=== PATIENT | female | born 1955 | race Hispanic/Latino ===

== ENCOUNTER → 2017-11-23 | Outpatient (RCR) | payer MEDICARE, OTHER | LOC: PT 11-02 13:43 | PROVIDERS: ATTEND Specialist | DX: Z96.641 Presence of right artificial hip joint (principal); M99.03 Segmental and somatic dysfunction of lumbar region; M06.862 Other specified rheumatoid arthritis, left knee; E66.01 Morbid (severe) obesity due to excess calories; R26.2 Difficulty in walking, not elsewhere classified; M62.81 Muscle weakness (generalized) | CPT/HCPCS: 97010 ×2; 97110 ×6; 97163; G8978; G8979 ==

== ENCOUNTER 2017-12-06 10:42 | Outpatient (RCR) | payer MEDICARE, OTHER | END 2017-12-24 | LOC: PT 10:42 | PROVIDERS: ATTEND Specialist | DX: Z96.641 Presence of right artificial hip joint (principal); M99.03 Segmental and somatic dysfunction of lumbar region; M06.862 Other specified rheumatoid arthritis, left knee; E66.01 Morbid (severe) obesity due to excess calories; R26.2 Difficulty in walking, not elsewhere classified; M62.81 Muscle weakness (generalized) | CPT/HCPCS: 97010; 97110 ×6; G8978; G8979 ==

== ENCOUNTER 2018-01-17 06:02 | Observation (INO) | payer MEDICARE ==
[2018-01-14 09:49] LABS: BASOPHILS # (AUTO) 0.1 (0.0-0.1); BASOPHILS % 0.6 % (0.0-1.0); EOSINOPHILS # (AUTO) 0.1 (0.0-0.4); EOSINOPHILS % 1.2 % (0.0-6.0); HEMATOCRIT 45.1 % (34.2-44.1); HEMOGLOBIN 14.8 g/dL (12.0-16.0); LYMPHOCYTES # (AUTO) 3.1 (1.0-3.2); LYMPHOCYTES % 31.3 % (18.0-39.1); MEAN CORPUSCULAR HGB CONC 32.8 g/dL (31-35); MEAN CORPUSCULAR VOLUME 94.5 fL (81-99); MONOCYTES % 10.6 % (4.4-11.3); NEUTROPHILS # (AUTO) 5.5 (2.1-6.9); NEUTROPHILS % 56.1 % (38.7-80.0); PLATELET COUNT 229 x10e3/uL (140-360); RED BLOOD COUNT 4.77 x10e6/uL (3.6-5.1); RED CELL DISTRIBUTION WIDTH 13.5 % (11.7-14.4)
[2018-01-14 10:14] LABS: ANION GAP 15.4 mmol/L (8-16); BLOOD UREA NITROGEN 13 mg/dL (7-26); BUN/CREATININE RATIO 20 (6-25); CALCIUM 9.4 mg/dL (8.4-10.2); CARBON DIOXIDE 29 mmol/L (22-29); CHLORIDE 101 mmol/L (98-107); CREATININE, SERUM 0.64 mg/dL (0.57-1.11); EST GLOMERULAR FILTRATION RATE > 60 ML/MIN (60-); GLUCOSE 93 mg/dL (74-118); POTASSIUM 4.4 mmol/L (3.5-5.1); SODIUM 141 mmol/L (136-145)
[~2018-01-17] VITALS: Ht 157.5 cm; Wt 102.5 kg
[~2018-01-17 06:02] MED LIST: ADVIL200 MG PO; CELEBREX100 MG PO; CENTRUM SILVER1 EAC3 PO; CIMZIA400 MG/2 M SC; CITALOPRAM HBR20 MG PO; FOLIC ACID1 MG PO; LISINOPRIL-HCT1 EAC1 PO; METHOTREXATE2.5 MG PO; METOPROLOL TART25 MG PO; MONTELUKAST SOD10 MG PO; OMEPRAZOLE40 MG PO; PRAVASTATIN SOD20 MG PO; SUCRALFATE1 GM PO; SYMBICORT 16010.2 GM INH; VIT D3 PO
[2018-01-17] MEDS ORDERED: DEXAMETHASONE SOD PHOS 10 MG/1 ML VIAL ONE (06:16)
[2018-01-17] MEDS ORDERED: CELECOXIB 200 MG CAP ONE (06:16)
[2018-01-17] MEDS ORDERED: GABAPENTIN 300 MG CAP ONE (06:17)
[2018-01-17] MEDS ORDERED: VANCOMYCIN 1GM/NS 250 ML 250 ML ONE (06:17)
[2018-01-17] MEDS ORDERED: BACITRACIN 50,000 UNIT VIAL ONE (06:56)
[2018-01-17] MEDS ORDERED: TRANEXAMIC ACID 1,000 MG/10 ML ML ONE (06:56)
[2018-01-17] MEDS ORDERED: ROPIVACAINE 246.25 MG, EPINEPHRINE HCL 1:1000 0.5 MG, CLONIDINE HCL 0.08 MG, KETOROLAC ... INJ ONE ×5 (07:30)
--- NOTE | 2018-01-17 07:38 | Diagnostic Imaging Report ---
PROCEDURE: X-RAY CHEST, TWO VIEWS COMPARISON: None. INDICATIONS: PRE OPERATIVE CHEST X-RAY FOR LEFT KNEE SURGERY FINDINGS: The lungs are well-inflated. No focal air space opacity, pleural effusion, or pneumothorax. There is hazy opacity along the right cardiac border in the pericardiophrenic recess. The mediastinal contour is otherwise within normal limits. No pulmonary edema. Multilevel degenerative disc changes of the thoracic spine. CONCLUSION: No acute cardiopulmonary abnormality. Opacity along the right pericardiophrenic recess likely reflects prominent epicardial fat, though the differential diagnosis includes pericardial cyst or less likely pericardial effusion. Prior chest radiographs, if available, would be useful for comparison purposes. In the absence of prior chest radiographs, a CT scan of the chest with contrast is suggested for further evaluation. Dictated by: Abe Garcia M.D. on 01/17/2018 at 7:46 Electronically approved by: Abe Garcia M.D. on 01/17/2018 at 7:46
[2018-01-17] MEDS ORDERED: KETOROLAC TROMETHAMINE 30 MG/ML VIAL IV PRN (09:30)
[2018-01-17] MEDS ORDERED: PROMETHAZINE HCL (IM) 25 MG/ML VIAL INJ PRN (09:30)
[2018-01-17] MEDS ORDERED: ACETAMINOPHEN 650 MG SUPP PR PRN (09:30)
[2018-01-17] MEDS ORDERED: ONDANSETRON HCL INJ 2 MG/ML VIAL IV PRN (09:30)
[2018-01-17] MEDS ORDERED: DOCUSATE SODIUM 100 MG CAP PO PRN (09:30)
[2018-01-17] MEDS ORDERED: HYDROCODONE/APAP 5MG-325MG TAB PO PRN (09:30)
[2018-01-17] MEDS ORDERED: DIPHENHYDRAMINE HCL INJ 50 MG/ML VIAL IM/IV PRN (09:30)
[2018-01-17] MEDS ORDERED: ZOLPIDEM TARTRATE 5 MG TAB PO PRN (09:30)
[2018-01-17] MEDS ORDERED: HYDROMORPHONE 1MG/1ML INJ ONE (10:04)
--- NOTE | 2018-01-17 10:23 | Diagnostic Imaging Report ---
PROCEDURE: X-RAY LEFT KNEE, ONE OR TWO VIEWS COMPARISON: None. INDICATIONS:POST LEFT KNEE SURGERY FINDINGS: See conclusion. CONCLUSION: Status post total left knee replacement with surrounding soft tissue swelling, air and marylin consistent with recent surgery. No periprosthetic displaced fractures. Dictated by: Abe Garcia M.D. on 01/17/2018 at 10:31 Electronically approved by: Abe Garcia M.D. on 01/17/2018 at 10:31
[2018-01-17] MEDS ORDERED: HYDROMORPHONE 2MG/ML 2 MG/ML ML ONE (10:27)
[2018-01-17] MEDS: SODIUM CHLORIDE 0.9% 1000ML 1,000 ML IV SCH ×2 (11:31→19:23)
[2018-01-17] MEDS: ACETAMINOPHEN 1000 MG/100 ML IV SCH ×3 (11:31→23:19)
[2018-01-17] MEDS: VANCOMYCIN 1GM/NS 250 ML 250 ML IV SCH ×2 (11:37→21:08)
[2018-01-17 12:00] VITALS: BP 145/60
[2018-01-17 12:04] VITALS: BP 145/69
--- NOTE | 2018-01-17 14:03 | Operative Report ---
DATE OF PROCEDURE: January 17, 2018 MAKER UP FOLDING: Hernan Larry PA-C The patient was brought to the operating room for induction of anesthesia. Throughout this case, my PA's assistance was necessary for retraction of soft tissue and positioning of the extremity. This allows for efficient and technically successful execution of the operation and is considered medically necessary. PREOPERATIVE DIAGNOSIS: Osteoarthritis, left knee. POSTOPERATIVE DIAGNOSIS: Osteoarthritis, left knee. PROCEDURE: Left total knee arthroplasty. INDICATIONS: The patient is a 62-year-old lady who has clinic signs and symptoms consistent with advanced osteoarthritis of her left knee. She has failed conservative management and would like to proceed with a left total knee replacement. The risks and benefits have been reviewed. She states she understands and wishes to proceed. DESCRIPTION OF PROCEDURE: The patient was brought to the operating room and placed under general anesthetic. She received a regional block, prophylactic antibiotics and tranexamic acid in the holding area. Her left lower extremity was prepped and draped in a sterile manner. A preoperative time out was performed. The extremity was exsanguinated, and a proximal tourniquet was inflated to 300 mmHg. An anterior approach with a medial parapatellar arthrotomy was performed. A limited medial dissection was performed due to the patient's valgus deformity. The knee was brought up into flexion with the patella everted. The cruciate ligaments were sacrificed. A [employer] April II posterior stabilized knee system was used throughout the case. Meniscal remnants and marginal osteophytes were removed. An extramedullary cutting guide was used to resect the proximal tibia. The tibial baseplate was noted to be a size number 3. The central fin punch was impacted, and attention was directed towards the distal femur. An intramedullary cutting guide was used to resect the distal femur in 6 degrees of valgus and rotation referencing off of a combination of landmarks including [place] line, the posterior condyles and epicondylar axis. Some posterolateral hypoplasia was taken into account. The femoral component was a size number 4. The anterior and posterior cuts were made. Trial reductions were performed. A 9-mm ultracongruent tibial insert was felt to provide appropriate soft-tissue balancing in flexion and extension. The patella was resurfaced with a 29-mm x 9-mm patellar button. The thickness was checked before and after resurfacing and was right at 22 mm. Patellar tracking was noted to be concentric. The trial implants were then all removed. The knee was thoroughly irrigated with a shower-tip pulsatile lavage. A 100-mL premixed pericapsular CURT injection was placed into the surrounding soft tissue. The components were cemented into place using a single mix of [place] cement preloaded with antibiotics. Care was taken to remove all extravasated cement. The wound was further irrigated while the cement cured. The arthrotomy was then closed with interrupted #1 Ethibond. The knee was put through flexion and extension to ensure a secure closure. The skin was closed with subcuticular Vicryl and marylin. A sterile bandage was applied. The patient was extubated and transported to the recovery room in stable condition. Blood loss was minimal. All needle and sponge counts were correct. Job#: [id number]
[2018-01-17 16:00] VITALS: BP 99/52
[2018-01-17] MEDS: ASPIRIN 325 MG TAB PO SCH (17:20)
[2018-01-17] MEDS: CELECOXIB 100 MG CAP PO SCH (17:20)
[2018-01-17] MEDS ORDERED: LIDOCAINE 2% /EPINEPHRINE 20 ML SDV INJ ONE (17:49)
[2018-01-17] MEDS ORDERED: ROPIVACAINE 0.5% 5 MG/ML 30 ML SDV ONE (17:49)
[2018-01-17] MEDS ORDERED: MIDAZOLAM HCL 2 MG/2 ML VIAL ONE (18:06)
[2018-01-17] MEDS ORDERED: FENTANYL CITRATE/PF 100MCG/2 ML INJ ONE (18:06)
[2018-01-17] MEDS ORDERED: PROPOFOL IV EMULSION 10 MG/ML 20 ML VIAL ONE (19:05)
[2018-01-17] MEDS ORDERED: SEVOFLURANE INHAL SOLN 250 ML PEN BTL ONE (19:05)
[2018-01-17] MEDS ORDERED: LIDOCAINE HCL 2% LOCAL INJ 5 ML SDV VIAL INJ ONE (19:05)
[2018-01-17] MEDS ORDERED: ONDANSETRON HCL INJ 2 MG/ML VIAL ONE (19:05)
[2018-01-17 20:00] VITALS: BP 124/58
[2018-01-17] MEDS: HYDROCODONE/APAP 7.5MG-325MG 1 EA TAB PO PRN (21:08)
[2018-01-18] VITALS: BP 120/55
[2018-01-18] MEDS ORDERED: SODIUM CHLORIDE 0.9% 250ML 250 ML ONE (00:13)
[2018-01-18] MEDS: HYDROCODONE/APAP 7.5MG-325MG 1 EA TAB PO PRN ×3 (01:33→09:24)
[2018-01-18 04:00] VITALS: BP 122/58
[2018-01-18] MEDS ORDERED: IBUPROFEN 200 MG TAB PO PRN (05:00)
[2018-01-18 05:29] LABS: HEMATOCRIT 38.6 % (34.2-44.1)
[2018-01-18] MEDS: ACETAMINOPHEN 1000 MG/100 ML IV SCH (05:31)
[2018-01-18 07:30] VITALS: BP 116/53
[2018-01-18] MEDS: SUCRALFATE 1 GM TAB PO SCH ×2 (08:33→12:20)
[2018-01-18] MEDS: CELECOXIB 100 MG CAP PO SCH (08:33)
[2018-01-18] MEDS: ASPIRIN 325 MG TAB PO SCH (08:33)
[2018-01-18] MEDS ORDERED: METOPROLOL TARTRATE 25 MG TAB PO SCH (09:00)
[2018-01-18] MEDS ORDERED: PANTOPRAZOLE SOD 40 MG TABEC PO SCH (09:00)
[2018-01-18] MEDS ORDERED: FOLIC ACID 1 MG TAB PO SCH (09:00)
[2018-01-18] MEDS ORDERED: LISINOPRIL 20 MG TAB PO SCH (09:00)
[2018-01-18] MEDS ORDERED: MU VITS MIN TH PO SCH (09:00)
[2018-01-18] MEDS ORDERED: LUTEIN PO SCH (09:00)
[2018-01-18] MEDS ORDERED: CELECOXIB 100 MG CAP PO SCH (09:00)
[2018-01-18] MEDS ORDERED: CITALOPRAM HYDROBROMIDE 20 MG TAB PO SCH (09:00)
[2018-01-18] MEDS ORDERED: HYDROCHLOROTHIAZIDE 25 MG TAB PO SCH (09:00)
[2018-01-18] MEDS ORDERED: LYCOPENE PO SCH (09:00)
[2018-01-18] MEDS ORDERED: MONTELUKAST SODIUM 10 MG TAB PO SCH (09:00)
[2018-01-18] MEDS ORDERED: ACETAMINOPHEN 1000 MG/100 ML IV PRN (09:30)
[2018-01-18] MEDS ORDERED: ASPIRIN325 MG PO (12:41)
[2018-01-18 13:44] VITALS: BP 119/58
[2018-01-18] MEDS ORDERED: METHOTREXATE SOD 2.5 MG TAB PO SCH (14:00)
[2018-01-18] MEDS ORDERED: PRAVASTATIN 20 MG TAB PO SCH (21:00)
--- OUTSIDE RECORDS SUMMARY | 2018-02-08 06:06 | XMS REPORT | Continuity of Care Document ---
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 08/18/2011 [place] Asthma Active Problem 11/15/2015 [facility] Depression Active Problem 11/15/2015 [facility] GERD - Gastro-esophageal reflux disease Active Problem 11/15/2015 [facility] Hypertension Active Problem 11/15/2015 [facility] Prolapsed uterus Active Problem 11/15/2015 [facility] Rheumatoid arthritis Active Problem 11/15/2015 [facility] Vaginal hysterectomy Active Problem 11/15/2015 [facility] Rheumatoid arthritis of multiple sites without organ or system involvement with positive rheumatoid factor Active Problem 01/08/2018 Rufina Najam Sicca syndrome Active Problem 01/08/2018 Rufina Najam Pain in left wrist Active Diagnosis 06/30/2017 Rufina Najam Stiffness of left wrist joint Active Diagnosis 06/30/2017 Rufina Najam Swelling of joint, wrist, left Active Diagnosis 06/30/2017 Rufina Najam Pain, joint, multiple sites Active Diagnosis 12/16/2017 Rufina Najam Fibromyalgia Active Diagnosis 12/16/2017 Rufina Najam High risk medication use Active Diagnosis 12/16/2017 Rufina Najam Counseling NOS Active Diagnosis 12/16/2017 Rufina Najam Pain in right wrist Active Diagnosis 06/30/2017 Rufina Najam Stiffness of right wrist joint Active Diagnosis 06/30/2017 Rufina Najam Lumbago due to displacement of intervertebral disc Active Problem 01/08/2018 Rufina Azar Left medial knee pain Active Diagnosis 12/16/2017 Rufina Azar Rash Active Diagnosis 06/16/2017 Rufina Azar Acute right ankle pain Active Diagnosis 06/16/2017 Rufina Azar Hair loss Active Diagnosis 08/26/2016 Rufina Azar Wrist pain, left Active Diagnosis 11/07/2015 Rufina Azar Wrist pain, right Active Diagnosis 11/07/2015 Rfuina Azar GENITAL PROLAPSE NEC Active [facility] Medications Medication Details Route Status Patient Instructions Ordering Provider Order Date Source Folic Acid 2 tabs Orally Active 1 mg Orally Once a day [facility] 02/28/2018 Rufina Azar Cimzia as directed Subcutaneous Active 2 X 200 MG Subcutaneous [facility] 10/11/2017 Rufina Azar Folic Acid 2 tabs Orally Active 1 mg Orally Once a day [facility] 10/09/2017 Rufina Azar Lyrica 1 cap(s) Orally Active 75 MG Orally bedtime for a week then twice a day [facility] 08/31/2017 Rufina Azar Medrol as directed Orally Active 4 MG Orally Once a day [facility] 08/27/2017 Rufina Azar Humira Pen 0.8 ml Subcutaneous Active 40 MG/0.8ML Subcutaneous every 2 weeks [facility] 08/10/2017 Rufina Azar Celecoxib 1 tab(s) with food as needed Orally Active 200 MG Orally Twice a day [facility] 07/11/2017 Rufina Azar Humira Pen 0.8 ml Subcutaneous Active 40 MG/0.8ML Subcutaneous every 2 weeks [facility] 02/08/2017 Rufina Azar Enbrel SureClick 1 ml Subcutaneous Active 50 MG/ML Subcutaneous Once a week [facility] 02/08/2017 Rufina Azar Meloxicam 1 tablet x 4 weeks Active 7.5 MG x 4 weeks Once a day prn with food [facility] 02/08/2017 Rufina Azar Celecoxib 1 tab(s) with food as needed Orally Active 200 MG Orally Twice a day [facility] 02/08/2017 Rufina Azar Humira Pen 0.8 ml Subcutaneous Active 40 MG/0.8ML Subcutaneous every 2 weeks [facility] 01/16/2017 Rufina Azar Meloxicam 1 tablet x 4 weeks Active 7.5 MG x 4 weeks Once a day prn with food [facility] 11/17/2016 Rufina Azar Enbrel SureClick 1 ml Subcutaneous Active 50 MG/ML Subcutaneous Once a week [facility] 08/24/2016 Rufina Azar Humira Pen 0.8 ml Subcutaneous Active 40 MG/0.8ML Subcutaneous every 2 weeks [facility] 08/24/2016 Rufina Azar Humira Pen 0.8 ml Subcutaneous Active 40 MG/0.8ML Subcutaneous once weekly [facility] 05/18/2016 Rufina Azar Folic Acid 2 tabs Orally Active 1 mg Orally Once a day [facility] 05/18/2016 Rufinacira Azar Prednisone 5 mg, 1 tab, Route: PO, Drug form: TAB, Daily, Dosing Weight 109.091, kg, Start date: 07/19/13 9:00:00, Duration: 30 day, Stop date: 08/17/13 9:00:00Take with food. No Longer Active 07/19/2013 [facility] hydrochlorothiazide 25 mg oral tablet 25 mg, 1 tab, Route: PO, Drug form: TAB, Daily, Start date: 07/19/13 9:00:00, Duration: 30 day, Stop date: 08/17/13 9:00:00(Same as: Hydrodiuril) With food. No Longer Active 07/19/2013 [facility] Omeprazole 40 mg, Route: PO, Drug form: DRC, Daily, Dosing Weight 109.091, kg, Start date: 07/19/13 9:00:00, Duration: 30 day, Stop date: 08/17/13 9:00:00 No Longer Active 07/19/2013 [facility] Fluoxetine 40 mg, 2 cap, Route: PO, Drug form: CAP, Daily, Dosing Weight 109.091, kg, Start date: 07/19/13 9:00:00, Duration: 30 day, Stop date: 08/17/13 9:00:00(Same as: Parth Saldaña) No Longer Active 07/19/2013 [facility] Enalapril Maleate 10 MG / Hydrochlorothiazide 25 MG Oral Tablet 1 tab, Route: PO, Drug Form: TAB, Dosing Weight 109.091, kg, Daily, Start date: 07/19/13 9:00:00, Duration: 30 day, Stop date: 08/17/13 9:00:00 No Longer Active 07/19/2013 [facility] Vasotec 10 mg, 1 tab, Route: PO, Drug form: TAB, Daily, Start date: 07/19/13 9:00:00, Duration: 30 day, Stop date: 08/17/13 9:00:00(Same as: Vasotec) No Longer Active 07/19/2013 [facility] Protonix 40 mg, 1 tab, Route: PO, Drug form: ECTAB, Before Breakfast, Start date: 07/19/13 7:30:00, Duration: 30 day, Stop date: 08/17/13 7:30:00Tablet should not be chewed or crushed. (Same as: Protonix) No Longer Active 07/19/2013 [facility] Pravastatin 20 mg, 1 tab, Route: PO, Drug form: TAB, Bedtime, Dosing Weight 109.091, kg, Start date: 07/18/13 21:00:00, Duration: 30 day, Stop date: 08/16/13 21:00:00(Same as: Pravachol) Inactive 07/19/2013 [facility] Lopressor 25 mg, 1 tab, Route: PO, Drug form: TAB, Q12H, Dosing Weight 109.091, kg, Start date: 07/18/13 9:21:00, Duration: 30 day, Stop date: 08/17/13 9:00:00(Same as: Lopressor) Inactive 07/18/2013 [facility] Acetaminophen 300 MG / Hydrocodone Bitartrate 10 MG Oral Tablet [Vicodin 10/300] 1 tab, PO, Q4H, # 50 tab, 0 Refill(s) Inactive 07/18/2013 [facility] Saline Flush 0.9% 5 ml, Route: IVP, Drug Form: INJ, Dosing Weight 109.091, kg, Q12H, Start date: 07/17/13 21:00:00, Duration: 30 day, Stop date: 08/16/13 9:00:00Same as: BD Posiflush Sterile No Longer Active 07/18/2013 [facility] Saline Flush 0.9% 5 ml, Route: IVP, Drug Form: INJ, Dosing Weight 109.091, kg, PRN, PRN Line Flush, Start date: 07/17/13 19:48:00, Duration: 30 day, Stop date: 08/16/13 19:47:00Same as: BD Posiflush Sterile No Longer Active 07/18/2013 [facility] Flagyl 500 mg, 100 mL, Route: IVPB, Drug form: INJ, ONCALL, Start date: 07/17/13 15:00:00, Duration: 1 doses or times(Same as: Flagyl) Avoid alcohol. Inactive 07/17/2013 [facility] Cleocin Phosphate + Sodium Chloride 0.9% IV 100 mL 900 mg, 6 mL, Route: IVPB, ONCALL, Start date: 07/17/13 15:00:00, Duration: 1 doses or times(Same As: Cleocin) Inactive 07/17/2013 [facility] Benadryl 25 mg, 0.5 mL, Route: IVP, Drug form: INJ, Q6H, Dosing Weight 109.091, kg, PRN Itching, Start date: 07/17/13 14:12:00, Duration: 30 day, Stop date: 08/16/13 14:11:00(Same as: Benadryl) No Longer Active 07/17/2013 [facility] Ketorolac Tromethamine 30 MG/ML Injectable Solution 30 mg, 1 mL, Route: IV, Drug form: INJ, Q6H, Dosing Weight 109.091, kg, PRN Pain Score 1-5, Start date: 07/17/13 14:12:00, Duration: 4 day, Stop date: 07/21/13 14:11:00(Same as:Toradol) IV bolus must be given >15 seconds. Give IM administration slowly and deeply into the muscle. Not for use > 4 days No Longer Active 07/17/2013 [facility] Promethazine 25 mg, 1 mL, Route: IVPB, Q4H, Dosing Weight 109.091, kg, PRN Nausea & Vomiting, Start date: 07/17/13 14:11:00, Duration: 30 day, Stop date: 08/16/13 14:10:00Do not give IV push. (Same as: Phenergan) No Longer Active 07/17/2013 [facility] Demerol HCl 50 mg, 1 mL, Route: IV, Drug form: INJ, Q4H, Dosing Weight 109.091, kg, PRN Pain Score 6-10, Start date: 07/17/13 14:10:00, Duration: 4 day, Stop date: 07/21/13 14:09:00(Same as: Demerol) "Use Precaution in Elderly, Seizure disorders, and Renal impairment" No Longer Active 07/17/2013 [facility] NS 1,000 mL 1,000 mL, Rate: 125 ml/hr, Infuse over: 8 hr, Route: IV, Dosing Weight 109.091 kg, Total Volume: 1,000, Start date: 07/17/13 14:07:00, Duration: 30 day, Stop date: 08/16/13 14:06:00 Inactive 07/17/2013 [facility] Fentanyl 25 microgram, Route: IVP, Q5Min, Dosing Weight 109.091, kg, PRN Pain Score 4-6, Start date: 07/17/13 12:56:00, Duration: 4 doses or times, Stop date: Limited # of times Inactive 07/17/2013 [facility] Hydromorphone 0.5 mg, Route: IVP, Q5Min, Dosing Weight 109.091, kg, PRN Pain Score 7-10, Start date: 07/17/13 12:56:00, Duration: 4 doses or times, Stop date: Limited # of times Inactive 07/17/2013 [facility] Flumazenil 0.2 mg, Route: IVP, PRN, Dosing Weight 109.091, kg, PRN Benzodiazepine Reversal, Initial dose, Start date: 07/17/13 12:56:00, Duration: 30 day, Stop date: 08/16/13 12:55:00 Inactive 07/17/2013 [facility] Naloxone 0.04 mg, Route: IVP, Q2MIN, Dosing Weight 109.091, kg, PRN Narcotic Reversal, Start date: 07/17/13 12:56:00, Duration: 8 doses or times, Stop date: Limited # of times Inactive 07/17/2013 [facility] Ondansetron 4 mg, Route: IVP, ONCE, Dosing Weight 109.091, kg, PRN Nausea & Vomiting, Start date: 07/17/13 12:56:00 Inactive 07/17/2013 [facility] Calcium Chloride 0.0014 MEQ/ML / Potassium Chloride 0.004 MEQ/ML / Sodium Chloride 0.103 MEQ/ML / Sodium Lactate 0.028 MEQ/ML Injectable Solution 1,000 mL, Rate: 25 ml/hr, Infuse over: 40 hr, Route: IV, Dosing Weight 109.091 kg, Total Volume: 1,000, Start date: 07/17/13 10:17:00, Duration: 30 day, Stop date: 08/16/13 10:16:00 Inactive 07/17/2013 [facility] Humira 0 Refill(s) Active 07/13/2013 [facility] Metoprolol Tartrate 25 mg oral tablet 25 mg=1 tab, PO, BID, # 60 tab, 0 Refill(s) Active 07/13/2013 [facility] Enalapril Maleate 10 MG / Hydrochlorothiazide 25 MG Oral Tablet 1 tab, PO, Daily, # 30 tab, 0 Refill(s) Active 07/13/2013 [facility] Alendronic acid 70 MG Oral Tablet 70 mg=1 tab, PO, Q7D, # 4 tab, 0 Refill(s) Active 07/13/2013 [facility] pravastatin 20 mg oral tablet 20 mg=1 tab, PO, Bedtime, # 30 tab, 0 Refill(s) Active 07/13/2013 [facility] predniSONE 5 mg oral tablet 5 mg=1 tab, PO, Daily, # 7 tab, 0 Refill(s) Active 07/13/2013 [facility] FLUoxetine 40 mg oral capsule 40 mg=1 cap, PO, Daily, # 30 cap, 0 Refill(s) Active 07/13/2013 [facility] omeprazole 40 mg oral delayed release capsule 40 mg=1 cap, PO, Daily, # 30 cap, 0 Refill(s) Active 07/13/2013 [facility] Ranitidine HCl 1 capsule at bedtime Orally Active 300 MG Orally Once a day Najam Rufina Najam Meloxicam 1 tablet x 4 weeks Active 7.5 MG x 4 weeks Once a day prn with food Najam Rufina Najam Flonase 1 spray in each nostril Nasally Active 50 MCG/ACT Nasally Once a day Najam Rufina Najam Meclizine HCl 1 tablet as needed Orally Active 25 MG Orally Once a day Najam Rufina Najam Folic Acid 2 tabs Orally Active 1 mg Orally Once a day Najam Rufina Najam Fluoxetine HCl 1 capsule in the morning Orally Active 40 MG Orally Once a day Nissa Azra Gabapentin 2 capsule Orally Active 100 MG Orally bedtime Nissa Azar Lisinopril-Hydrochlorothiazide 1 tablet Orally Active 20-25 MG Orally Once a day Nissa Azar Pravastatin Sodium 1 tablet Orally Active 20 MG Orally Once a day Nissa Azar Metoprolol Succinate ER 1 tablet Orally Active 25 MG Orally Once a day Nissa Azar Methotrexate TAKE 4 TABLETS BY MOUTH ONCE WEEKLY NA Active 2.5 MG Nissa Azar Ranitidine HCl 1 capsule at bedtime Orally Active 300 MG Orally Once a day Nissa Azar Ciprofloxacin HCl 1 tablet Orally Active 500 MG Orally Once a day Nissa Azar Pravastatin Sodium 1 tablet Orally Active 20 MG Orally Once a day Nissa Azar Vitamin D-3 1 capsule Orally Active 1000 UNIT Orally Once a day Nissa Azar Flonase 1 spray in each nostril Nasally Active 50 MCG/ACT Nasally Once a day Nissa Azar Centrum Silver 50+Women not defined Orally Active - Orally Nissa Azar Ketorolac Tromethamine 1 drop into affected eye as needed Ophthalmic Active 0.5 % Ophthalmic Four times a day Nissa Azar ProAir HFA 2 puffs as needed Inhalation Active 108 (90 Base) MCG/ACT Inhalation every 6 hrs Nissa Azar Metoprolol Succinate ER 1 tablet Orally Active 25 MG Orally Once a day Nissa Azar Lisinopril-Hydrochlorothiazide 1 tablet Orally Active 20-25 MG Orally Once a day Nissa Azar Sertraline HCl 1 tablet Orally Active 50 MG Orally Once a day Nissa Azar Fluconazole 1 tablet Orally Active 150 MG Orally Nissa Azar Doxycycline Hyclate 1 capsule Orally Active 100 MG Orally every 12 hrs Nissa Azar Celecoxib 1 tab(s) with food as needed Orally Active 200 MG Orally Twice a day Nissa Azar Fluoxetine HCl 1 capsule in the morning Orally Active 40 MG Orally Once a day Nissa Azar Methotrexate 4 tabs Orally Active 2.5 MG Orally Once weekly Nissa Azar Enbrel SureClick 1 ml Subcutaneous Active 50 MG/ML Subcutaneous Once a week Nissa Azar Enbrel SureClick 1 ml Subcutaneous Active 50 MG/ML Subcutaneous Once a week Nissa Azar Gabapentin 2 capsule Orally Active 100 MG Orally bedtime Nissa Azar Folic Acid 2 tabs Orally Active 1 mg Orally Once a day Barbara Rufina Azar Humira Pen 0.8 ml Subcutaneous Active 40 MG/0.8ML Subcutaneous every 2 weeks Barbara Rufina Azar Phentermine HCl 1 capsule Orally Active 37.5 MG Orally Once a day Barbara Rufina Azar Lyrica 1 cap(s) Orally Active 75 MG Orally bedtime for a week then twice a day Barbara Rufina Azar Meloxicam 1 tablet Orally Active 7.5 MG Orally Once a day Barbara Rufina Azar Cimzia as directed Subcutaneous Active 2 X 200 MG Subcutaneous [facility] Rufina Jimenez Gabapentin 1 capsule Orally Active 300 MG Orally Three times a day Barbara Rufina Jimenez Humira Pen 0.8 ml Subcutaneous Active 40 MG/0.8ML Subcutaneous once weekly [facility] Rufina Azar Allergies, Adverse Reactions, Alerts Substance Category Reaction Severity Reaction type Status Date Reported Comments Source Penicillin Adverse Reaction hives/purple Adverse Reaction Active 12/15/2017 Rufina Azar penicillins Assertion Drug allergy Active [facility] Immunizations Immunization Date Given Site Status Last Updated Comments Source Results Order Name Results Value Reference Range Date Interpretation Comments Source Spine lumbar wo contrast MRI Spine lumbar wo contrast MRI EXAM: MRI LUMBAR SPINE WITHOUT CONTRAST DATE: 11/12/2015 11:35 AM CDT . CLINICAL INDICATION: Intervertebral disc degeneration . TECHNIQUE: Multiplanar, multisequence MRI lumbar spine without IV contrast COMPARISON: 07/23/2008 lumbar magnetic resonance imaging FINDINGS: The lumbar vertebral bodies have normal height, shape, and alignment. There is transitional anatomy at the lumbosacral junction. There is no worrisome marrow signal abnormality. The conus terminates normally at L1-L2. The paravertebral soft tissues are within normal limits. Disc spaces, spinal canal, and neural foramina: T12-L1. Intervertebral disc height and signal are maintained. Posterior elements are normal. There is no stenosis. L1-L2. Intervertebral disc height and signal are maintained. Posterior elements are normal. There is no stenosis. L2-L3. Intervertebral disc height and signal are maintained. Posterior elements are normal. There is no stenosis. L3-L4. Loss of intervertebral disc height and signal with small diffuse disc bulge. Mild facet enlargement. Central canal is patent. There is mild narrowing of the neural foramen without L3 nerve root mass effect. L4-L5. Intervertebral disc is dehydrated without central height loss. Facets are enlarged without ligamentous redundancy. Central canal measures 10 mm without cauda equina crowding. Lateral recesses are patent. There is [id number] stenosis of the neural foramina without L5 or nerve root mass effect L5-S1. Severe facet hypertrophy. 2 mm anterolisthesis of L5 relative to S1. Central canal is patent. Lateral recesses are narrowed without L5 nerve root compression. There is moderate stenosis of the neural foramina bilaterally without compression of the L5 nerve roots S1-S2: Rudimentary intervertebral discs without height loss or annular bulging. No stenosis. IMPRESSION: 1. Progression of L5-S1 facet arthropathy now with grade 1 spondylolisthesis and moderate bilateral neural foramen stenosis. There is no compression of the L5 nerve roots. 2. No central canal stenosis 3. Please see additional comments above 11/12/2015 - - Read by: Agustín Edwards MD Dictated Date/time: 11/12/15 12:38 Electronically Signed by: Agustín Edwards MD 11/12/15 13:12 FINAL REPORT [facility] Abdomen 2 views Abdomen 2 views No small bowel obstruction is identified. Right hip arthroplasty changes are seen. Osteopenia is present. Thoracolumbar spine degenerative changes are present. No radiopaque calculus is seen. There is moderate ascending colonic fecal material volume. No radiographic evidence of significant constipation is seen. IMPRESSION: 1. Moderate ascending colonic fecal material volume. 08/02/2013 - - Read by: Ash Jackson Dictated Date/time: 08/02/13 14:34 Electronically Signed by: Ash Jackson MD 08/02/13 14:35 FINAL REPORT [facility] CHEM PANEL eGFR 96 mL/min/1.73m2 07/13/2013 1Result Comment: The eGFR is calculated using the CKD-EPI formula. In most young, healthy individuals the eGFR will be >90 mL/min/1.73m2. The eGFR declines with age. An eGFR of 60-89 may be normal in some populations, particularly the elderly, for whom the CKD-EPI formula has not been extensively validated. Use of the eGFR is not recommended in the following populations: Individuals with unstable creatinine concentrations, including patients and those with serious co-morbid conditions. Patients with extremes in muscle mass or diet. The data above are obtained from the National Kidney Disease Education Program (NKDEP) which additionally recommends that when the eGFR is used in patients with extremes of body mass index for purposes of drug dosing, the eGFR should be multiplied by the estimated BMI. [facility] CHEM PANEL ASPARTATE TRANSAMINASE 24 unit/L 0 - 37 07/13/2013 [facility] CHEM PANEL ALANINE AMINOTRANSFERASE 29 unit/L 0 - 65 07/13/2013 [facility] CHEM PANEL Bili Total 0.4 mg/dL 0.2 - 1.3 07/13/2013 [facility] CHEM PANEL Alk Phos 84 unit/L 39 - 136 07/13/2013 [facility] CHEM PANEL Creatinine Lvl 0.7 mg/dL 0.5 - 1.4 07/13/2013 [facility] CHEM PANEL Sodium Lvl 143 meq/L 135 - 145 07/13/2013 [facility] CHEM PANEL BUN 7 mg/dL 7 - 22 07/13/2013 [facility] CHEM PANEL Calcium Lvl 8.5 mg/dL 8.5 - 10.5 07/13/2013 [facility] CHEM PANEL Albumin Lvl 3.3 g/dL 3.5 - 5.0 07/13/2013 [facility] CHEM PANEL Total Protein 7.1 g/dL 6.4 - 8.4 07/13/2013 [facility] CHEM PANEL Potassium Lvl 3.5 meq/L 3.5 - 5.1 07/13/2013 [facility] CHEM PANEL CO2 34 meq/L 24 - 32 07/13/2013 [facility] CHEM PANEL Chloride Lvl 103 meq/L 95 - 109 07/13/2013 [facility] CHEM PANEL Glucose Lvl 102 mg/dL 70 - 99 07/13/2013 2Interpretive Data: Adult reference range values reflect the clinical guidelines of the [place] [employer]. [facility] CHEM PANEL Globulin 3.8 g/dL 2.0 - 4.0 07/13/2013 [facility] CHEM PANEL A/G Ratio 0.9 0.7 - 1.6 07/13/2013 [facility] CHEM PANEL AGAP 9.5 meq/L 10.0 - 20.0 07/13/2013 [facility] CHEM PANEL B/C Ratio 10 6 - 25 07/13/2013 [facility] HEMATOLOGY Basophils # 0.1 K/CMM 0.0 - 0.2 07/13/2013 [facility] HEMATOLOGY Eosinophils # 0.3 K/CMM 0.0 - 0.5 07/13/2013 [facility] HEMATOLOGY Monocytes # 0.9 K/CMM 0.0 - 0.8 07/13/2013 [facility] HEMATOLOGY Lymphocytes # 4.3 K/CMM 1.0 - 5.5 07/13/2013 [facility] HEMATOLOGY Segs-Bands # 4.0 K/CMM 1.5 - 8.1 07/13/2013 [facility] HEMATOLOGY Basophils 0.9 % 0.0 - 1.0 07/13/2013 [facility] HEMATOLOGY Lymphocytes 44.8 % 20.0 - 40.0 07/13/2013 [facility] HEMATOLOGY Eosinophils 2.6 % 0.0 - 4.0 07/13/2013 [facility] Monocytes 9.5 % 2.0 - 12.0 07/13/2013 [facility] Segs 42.2 % 45.0 - 75.0 07/13/2013 [facility] MCH 30.1 pg 27.0 - 31.0 07/13/2013 [facility] MCV 89.7 fL 81.0 - 99.0 07/13/2013 [facility] HEMATOLOGY MPV 8.9 fL 7.4 - 10.4 07/13/2013 [facility] HEMATOLOGY Platelet 290 K/CMM 133 - 450 07/13/2013 [facility] HEMATOLOGY RDW 15.2 % 11.5 - 14.5 07/13/2013 [facility] HEMATOLOGY WBC X 10x3 9.6 K/CMM 3.7 - 10.4 07/13/2013 [facility] HEMATOLOGY Hct 42.5 % 36.0 - 48.0 07/13/2013 [facility] Hgb 14.3 g/dL 12.0 - 16.0 07/13/2013 [facility] HEMATOLOGY RBC X 10x6 4.74 M/CMM 4.20 - 5.40 07/13/2013 [facility] MCHC 33.6 g/dL 32.0 - 36.0 07/13/2013 [facility] Chest 2 views Chest 2 views HISTORY: Cough. Chest 2 views. Comparison 09/22/2012. Heart size normal. No evidence for CHF. No pulmonary infiltrate pleural effusion or pneumothorax. Prominent pericardial fat is noted along the right heart border, similar to previous. IMPRESSION: No new or acute findings. SL:13 07/13/2013 - - Read by: Toi Wagoner Dictated Date/time: 07/13/13 15:48 Electronically Signed by: Toi Wagoner MD 07/13/13 15:49 FINAL REPORT [facility] Digital Mammo Screening Nithin MA Digital Mammo Screening Nithin MA - DIGITAL MAMMO SCREENING NITHIN MA BILATERAL DIGITAL SCREENING MAMMOGRAM WITH CAD: 05/12/2013 CLINICAL: Screening. Current study was evaluated with a Computer Aided Detection (CAD) system. No prior exams were available for comparison. The tissue of both breasts is almost entirely fat. No significant masses, calcifications, or other findings are seen in either breast. IMPRESSION: NEGATIVE There is no mammographic evidence of malignancy. A screening mammogram in one year is recommended. Dr. Janett Aranda D.O. ht/penrad:05/22/2013 15:16:51 Funding Analyst: Isa LOPEZ, [facility] This exam was dictated and interpreted by [id number] for HEATH Newton. letter sent: Normal exam Mammogram BI-RADS: 1 Negative 05/12/2013 - - Read by: Janett Aranda Dictated Date/time: 05/22/13 15:16 Electronically Signed by: Janett Aranda , 05/22/13 15:16 FINAL REPORT HEATH Carrera Chest 2 views Chest 2 views REASON FOR EXAMINATION: Shortness of breath . COMPARISON: None. FINDINGS: Two views of the chest are submitted for interpretation. Prominent right epicardial fat pad is present. The heart size is normal. The lungs are clear. Mild dextroscoliosis of the thoracic spine is present. Thereafter cirrhotic calcifications of the aorta. IMPRESSION: 1. NO ACUTE CARDIOPULMONARY ABNORMALITIES. 09/22/2012 - - Read by: Gurdeep Ayala Dictated Date/time: 09/22/12 13:00 Electronically Signed by: Gurdeep Ayala MD 09/22/12 13:01 FINAL REPORT COURTNEY Carrera Vital Signs Vital Sign Value Date Comments Source Height 62 12/15/2017 Rufina Najam Diastolic (mm Hg) 86 12/15/2017 Rufina Najam Systolic (mm Hg) 145 12/15/2017 Rufina Najam Weight 226.8 12/15/2017 Rufina Najam Height 62 11/24/2017 Rufina Najam Diastolic (mm Hg) 73 11/24/2017 Rufina Najam Systolic (mm Hg) 124 11/24/2017 Rufina Najam Weight 238 11/24/2017 Rufina Najam Height 62 10/12/2017 Rufina Najam Diastolic (mm Hg) 67 10/12/2017 Rufina Najam Systolic (mm Hg) 116 10/12/2017 Rufina Najam Weight 242 10/12/2017 Rufina Najam Height 62 10/11/2017 Rufina Najam Diastolic (mm Hg) 91 10/11/2017 Rufina Najam Systolic (mm Hg) 160 10/11/2017 Rufina Najam Weight 241.4 10/11/2017 Rufina Najam Height 62 09/28/2017 Rufina Najam Diastolic (mm Hg) 91 09/28/2017 Rufina Najam Systolic (mm Hg) 144 09/28/2017 Rufina Najam Weight 243 09/28/2017 Rufina Najam Height 62 09/14/2017 Rufina Najam Diastolic (mm Hg) 81 09/14/2017 Rufina Najam Systolic (mm Hg) 129 09/14/2017 Rufina Najam Weight 245 09/14/2017 Rufina Najam Height 62 08/31/2017 Rufina Najam Diastolic (mm Hg) 83 08/31/2017 Rufina Najam Systolic (mm Hg) 141 08/31/2017 Rufina Najam Weight 248 08/31/2017 Rufina Najam Height 62 06/23/2017 Rufina Najam Diastolic (mm Hg) 79 06/23/2017 Rufina Najam Systolic (mm Hg) 138 06/23/2017 Rufina Najam Weight 246 06/23/2017 Rufina Najam Height 62 06/22/2017 Rufina Najam Diastolic (mm Hg) 79 06/22/2017 Rufina Najam Systolic (mm Hg) 138 06/22/2017 Rufina Najam Weight 246 06/22/2017 Rufina Najam Height 62 06/14/2017 Rufina Najam Diastolic (mm Hg) 79 06/14/2017 Rufina Najam Systolic (mm Hg) 138 06/14/2017 Rufina Najam Weight 246 06/14/2017 Rufina Najam Height 62 04/12/2017 Rufina Najam Diastolic (mm Hg) 83 04/12/2017 Rufina Najam Systolic (mm Hg) 173 04/12/2017 Rufina Najam Weight 247.8 04/12/2017 Rufina Najam Height 62 02/08/2017 Rufina Najam Diastolic (mm Hg) 78 02/08/2017 Rufina Najam Systolic (mm Hg) 156 02/08/2017 Rufina Najam Weight 251 02/08/2017 Rufina Najam Height 62 12/16/2016 Rufina Najam Diastolic (mm Hg) 79 12/16/2016 Rufina Najam Systolic (mm Hg) 150 12/16/2016 Rufina Najam Weight 247.6 12/16/2016 Rufina Najam Height 62 10/05/2016 Rufina Najam Diastolic (mm Hg) 77 10/05/2016 Rufina Najam Systolic (mm Hg) 149 10/05/2016 Rufina Najam Weight 250 10/05/2016 Rufina Najam Height 62 08/24/2016 Rufina Najam Diastolic (mm Hg) 68 08/24/2016 Rufina Najam Systolic (mm Hg) 155 08/24/2016 Rufina Najam Weight 243 08/24/2016 Rufina Najam Height 62 07/20/2016 Rufina Najam Diastolic (mm Hg) 80 07/20/2016 Rufina Najam Systolic (mm Hg) 145 07/20/2016 Rufina Najam Weight 244.8 07/20/2016 Rufina Najam Height 62 03/24/2016 Rufina Najam Diastolic (mm Hg) 80 03/24/2016 Rufina Najam Systolic (mm Hg) 165 03/24/2016 Rufina Najam Weight 241.8 03/24/2016 Rufina Najam Height 62 11/22/2015 Rufina Najam Diastolic (mm Hg) 87 11/22/2015 Rufina Najam Systolic (mm Hg) 173 11/22/2015 Rufina Najam Weight 240 11/22/2015 Rufina Najam Height 62 11/20/2015 Rufina Najam Diastolic (mm Hg) 87 11/20/2015 Rufina Najam Systolic (mm Hg) 154 11/20/2015 Rufina Najam Weight 240.2 11/20/2015 Rufina Najam Height 62 11/06/2015 Rufina Najam Diastolic (mm Hg) 82 11/06/2015 Rufina Najam Systolic (mm Hg) 146 11/06/2015 Rufina Najam Weight 239.2 11/06/2015 Rufina Najam Respitory Rate 16 07/18/2013 [facility] Heart Rate 81 07/18/2013 [facility] Diastolic (mm Hg) 74 07/18/2013 [facility] Systolic (mm Hg) 113 07/18/2013 [facility] Temperature Oral (F) 98.3 F 07/18/2013 [facility] Respitory Rate 18 07/18/2013 [facility] Systolic (mm Hg) 116 07/18/2013 [facility] Diastolic (mm Hg) 75 07/18/2013 [facility] Temperature Oral (F) 98.7 F 07/18/2013 [facility] Heart Rate 79 07/18/2013 [facility] Diastolic (mm Hg) 67 07/18/2013 [facility] Respitory Rate 20 07/18/2013 [facility] Systolic (mm Hg) 105 07/18/2013 [facility] Temperature Oral (F) 98.3 F 07/18/2013 [facility] Heart Rate 78 07/18/2013 [facility] Weight 109.091 07/13/2013 [facility] Height 157.48 cm 07/13/2013 [facility] BMI Calculated 43.99 07/13/2013 [facility] Encounters Location Location Details Encounter Type Encounter Number Reason For Visit Attending Provider ADM Date DC Date Status Source [facility] Outpatient [id number] 733.01 SENILE OSTEOPOROSIS YOUNG LAGOS 08/20/2011 08/20/2011 Active [facility] Inpatient [id number] Madelin Dafjhony 07/17/2013 07/18/2013 [facility] [place] [facility] [id number] Deepak Juárez 08/02/2013 08/03/2013 [facility] [place] [facility] [id number] 11/06/2015 11/06/2015 [facility] [place] [id number] 11/06/2015 11/06/2015 [facility]uf[facility] Az[facility] [id number] 11/06/2015 11[facility]06[facility] [id number] 11/06/2015 11/06/2015 Rufina Azar [facility] RA [id number] 11/06/2015 11/06/2015 [facility] Az[facility] [id number] 11/06/2015 11/06/2015 Rufina Azar [facility] [place] [facility] [id number] [facility] 11/12/2015 11/13/2015 [facility] [place] [facility] Follow Up Lab & MRI Results [id number] 11/20/2015 11/20/2015 [facility]uf[facility] Azar [facility] Follow Up Lab & MRI Results [id number] 11/20/2015 11/20/2015 [facility]uf[facility] Az[facility] Follow Up Lab & MRI Results [id number] 11/20/2015 11/20/2015 Rufina Azar [facility] Follow Up Lab & MRI Results [id number] 11/20/2015 11/20/2015 [facility]uf[facility] Azar [facility] Follow Up Lab & MRI Results [id number] 11/20/2015 11/20/2015 [facility] Rhe[facility] Clinic Right Wrist MRI [id number] 11/22/2015 11/22/2015 [facility] Right Wrist MRI [id number] 11/22/2015 11/22/2015 [facility] Rheumatology [facility] Right Wrist MRI [id number] 11/22/2015 11/22/2015 [facility] Right Wrist MRI [id number] 11/22/2015 11/22/2015 [facility] Rheumatology [facility] Humira - approved [id number] 11/25/2015 11/25/2015 [facility] Rheumatology [facility] Humira - approved [id number] 11/25/2015 11/25/2015 [facility] Humira - approved [id number] 11/25/2015 11/25/2015 [facility] Follow up 4 Month [id number] 03/24/2016 03/24/2016 [facility] Follow up 4 Month [id number] 03/24/2016 03/24/2016 [facility] Rhe[facility]ology Clinic humira rx [id number] 05/29/2016 05/29/2016 [facility] Procedures Procedure Code Date Perfomer Comments Source Joint replacement<sup>1</sup> [id number] 2009 [facility] [place] Primary repair of umbilical hernia [id number] [facility] [place] Repair of diaphragmatic hiatal hernia [id number] [facility] [place] Tonsillectomy [id number] [facility] [place] Joint replacement<sup>1</sup> [id number] 40509 [facility] Primary repair of umbilical hernia [id number] [facility] Repair of diaphragmatic hiatal hernia [id number] [facility] Tonsillectomy [id number] [facility]
--- OUTSIDE RECORDS SUMMARY | 2018-02-08 06:06 | XMS REPORT | Summary of Care ---
Author Organization Unknown Address Unknown Phone Unavailable Encounter Dates Location Diagnoses Discharge Providers Disposition 07/17/2013 [facility] [address] [address] Madelin [address] [place] [address]- , [facility] Reason for Visit 618.89 Vital Signs 1 2 3 Most recent to oldest [Reference Range]: 157.48 cm (07/13/2013 14:53:00 [facility]) Height 98.3 DegF (07/18/2013 08:04:00 [facility]) 98.7 DegF (07/18/2013 04:35:00 [facility]) 98.3 DegF (07/17/2013 23:57:00 [facility] Temperature Oral [96.4-99.1 DegF] 113 mmHg (07/18/2013 08:04:00 [facility]) 116 mmHg (07/18/2013 04:35:00 [facility]) 105 mmHg (07/17/2013 23:57:00 [facility] Systolic Blood Pressure [90-140 mmHg] 74 mmHg (07/18/2013 08:04:00 [facility]) 75 mmHg (07/18/2013 04:35:00 [facility]) 67 mmHg (07/17/2013 23:57:00 [facility]) Diastolic Blood Pressure [60-90 mmHg] 16 BRMIN (07/18/2013 08:04:00 [facility]) 18 BRMIN (07/18/2013 04:35:00 [facility]) 20 BRMIN (07/17/2013 23:57:00 [facility]) Respiratory Rate [14-20 BRMIN] 81 bpm (07/18/2013 08:04:00 [facility]) 79 bpm (07/18/2013 04:35:00 [facility]) 78 bpm (07/17/2013 23:57:00 [facility]) Peripheral Pulse Rate [60-100 bpm] 109.091 kg (07/13/2013 14:53:00 [facility]) Weight 43.99 m2 (07/13/2013 14:53:00 [facility]) Body Mass Index Problem List Condition Effective Dates Status Health Status Informant Asthma(Confirmed) Active Depression(Confirmed Active ) GERD - Active Gastro-esophageal reflux disease(Confirmed) Hypertension(Confirm Active ed) Prolapsed Active uterus(Confirmed) Rheumatoid Active arthritis(Confirmed) Vaginal Active hysterectomy(Confirm ed) Allergies, Adverse Reactions, Alerts Status Substance Reaction Severity Active penicillins Medications Medication Instructions Start Date Stop Date Status alendronate 70 mg 70 mg=1 tab, PO, Q7D, # 4 tab, 0 07/13/2013 Ordered oral tablet Refill(s) Benadryl 25 mg, 0.5 mL, Route: IVP, Drug 07/17/2013 07/18/2013 Discontinued form: INJ, Q6H, Dosing Weight 109.091, kg, PRN Itching, Start date: 07/17/13 14:12:00, Duration: 30 day, Stop date: 08/16/13 14:11:00 (Same as: Benadryl) Cleocin Phosphate + 900 mg, 6 mL, Route: IVPB, ONCALL, 07/17/2013 07/17/2013 Completed Sodium Chloride 0.9% Start date: 07/17/13 15:00:00, IV 100 mL Duration: 1 doses or times (Same As: Cleocin) Demerol HCl 50 mg, 1 mL, Route: IV, Drug form: 07/17/2013 07/18/2013 Discontinued INJ, Q4H, Dosing Weight 109.091, kg, PRN Pain Score 6-10, Start date: 07/17/13 14:10:00, Duration: 4 day, Stop date: 07/21/13 14:09:00 (Same as: Demerol) "Use Precaution in Elderly, Seizure disorders, and Renal impairment" enalapril-hydrochlor 1 tab, PO, Daily, # 30 tab, 0 07/13/2013 Ordered othiazide 10 mg-25 Refill(s) mg oral tablet enalapril-hydrochlor 1 tab, Route: PO, Drug Form: TAB, 07/19/2013 07/18/2013 Deleted othiazide 10 mg-25 Dosing Weight 109.091, kg, Daily, mg oral tablet Start date: 07/19/13 9:00:00, Duration: 30 day, Stop date: 08/17/13 9:00:00 fentaNYL 25 microgram, Route: IVP, Q5Min, 07/17/2013 07/17/2013 Discontinued Dosing Weight 109.091, kg, PRN Pain Score 4-6, Start date: 07/17/13 12:56:00, Duration: 4 doses or times, Stop date: Limited # of times Flagyl 500 mg, 100 mL, Route: IVPB, Drug 07/17/2013 07/17/2013 Completed form: INJ, ONCALL, Start date: 07/17/13 15:00:00, Duration: 1 doses or times (Same as: Flagyl) Avoid alcohol. flumazenil 0.2 mg, Route: IVP, PRN, Dosing 07/17/2013 07/17/2013 Discontinued Weight 109.091, kg, PRN Benzodiazepine Reversal, Initial dose, Start date: 07/17/13 12:56:00, Duration: 30 day, Stop date: 08/16/13 12:55:00 FLUoxetine 40 mg, 2 cap, Route: PO, Drug form: 07/19/2013 07/18/2013 Canceled CAP, Daily, Dosing Weight 109.091, kg, Start date: 07/19/13 9:00:00, Duration: 30 day, Stop date: 08/17/13 9:00:00 (Same as: Prozac, Sarafem) FLUoxetine 40 mg 40 mg=1 cap, PO, Daily, # 30 cap, 0 07/13/2013 Ordered oral capsule Refill(s) Humira 0 Refill(s) 07/13/2013 Ordered hydrochlorothiazide 25 mg, 1 tab, Route: PO, Drug form: 07/19/2013 07/18/2013 Canceled 25 mg oral tablet TAB, Daily, Start date: 07/19/13 9:00:00, Duration: 30 day, Stop date: 08/17/13 9:00:00 (Same as: Hydrodiuril) With food. hydromorphone 0.5 mg, Route: IVP, Q5Min, Dosing 07/17/2013 07/17/2013 Discontinued Weight 109.091, kg, PRN Pain Score 7-10, Start date: 07/17/13 12:56:00, Duration: 4 doses or times, Stop date: Limited # of times ketorolac 30 mg/mL 30 mg, 1 mL, Route: IV, Drug form: 07/17/2013 07/18/2013 Discontinued injectable solution INJ, Q6H, Dosing Weight 109.091, kg, PRN Pain Score 1-5, Start date: 07/17/13 14:12:00, Duration: 4 day, Stop date: 07/21/13 14:11:00 (Same as:Toradol) IV bolus must be given >15 seconds. Give IM administration slowly and deeply into the muscle. Not for use > 4 days Lactated Ringers 1,000 mL, Rate: 25 ml/hr, Infuse 07/17/2013 07/17/2013 Discontinued Injection IV 1000 mL over: 40 hr, Route: IV, Dosing Weight 109.091 kg, Total Volume: 1,000, Start date: 07/17/13 10:17:00, Duration: 30 day, Stop date: 08/16/13 10:16:00 Lopressor 25 mg, 1 tab, Route: PO, Drug form: 07/18/2013 07/18/2013 Discontinued TAB, Q12H, Dosing Weight 109.091, kg, Start date: 07/18/13 9:21:00, Duration: 30 day, Stop date: 08/17/13 9:00:00 (Same as: Lopressor) Metoprolol Tartrate 25 mg=1 tab, PO, BID, # 60 tab, 0 07/13/2013 Ordered 25 mg oral tablet Refill(s) naloxone 0.04 mg, Route: IVP, Q2MIN, Dosing 07/17/2013 07/17/2013 Discontinued Weight 109.091, kg, PRN Narcotic Reversal, Start date: 07/17/13 12:56:00, Duration: 8 doses or times, Stop date: Limited # of times NS 1,000 mL 1,000 mL, Rate: 125 ml/hr, Infuse 07/17/2013 07/17/2013 Discontinued over: 8 hr, Route: IV, Dosing Weight 109.091 kg, Total Volume: 1,000, Start date: 07/17/13 14:07:00, Duration: 30 day, Stop date: 08/16/13 14:06:00 omeprazole 40 mg, Route: PO, Drug form: DRC, 07/19/2013 07/18/2013 Deleted Daily, Dosing Weight 109.091, kg, Start date: 07/19/13 9:00:00, Duration: 30 day, Stop date: 08/17/13 9:00:00 omeprazole 40 mg 40 mg=1 cap, PO, Daily, # 30 cap, 0 07/13/2013 Ordered oral delayed release Refill(s) capsule ondansetron 4 mg, Route: IVP, ONCE, Dosing 07/17/2013 07/17/2013 Completed Weight 109.091, kg, PRN Nausea & Vomiting, Start date: 07/17/13 12:56:00 pravastatin 20 mg, 1 tab, Route: PO, Drug form: 07/18/2013 07/18/2013 Canceled TAB, Bedtime, Dosing Weight 109.091, kg, Start date: 07/18/13 21:00:00, Duration: 30 day, Stop date: 08/16/13 21:00:00 (Same as: Pravachol) pravastatin 20 mg 20 mg=1 tab, PO, Bedtime, # 30 tab, 07/13/2013 Ordered oral tablet 0 Refill(s) predniSONE 5 mg, 1 tab, Route: PO, Drug form: 07/19/2013 07/18/2013 Canceled TAB, Daily, Dosing Weight 109.091, kg, Start date: 07/19/13 9:00:00, Duration: 30 day, Stop date: 08/17/13 9:00:00 Take with food. predniSONE 5 mg oral 5 mg=1 tab, PO, Daily, # 7 tab, 0 07/13/2013 07/20/2013 Ordered tablet Refill(s) promethazine + 25 mg, 1 mL, Route: IVPB, Q4H, 07/17/2013 07/18/2013 Discontinued Sodium Chloride 0.9% Dosing Weight 109.091, kg, PRN IV 50 mL Nausea & Vomiting, Start date: 07/17/13 14:11:00, Duration: 30 day, Stop date: 08/16/13 14:10:00 Do not give IV push. (Same as: Phenergan) Protonix 40 mg, 1 tab, Route: PO, Drug form: 07/19/2013 07/18/2013 Canceled ECTAB, Before Breakfast, Start date: 07/19/13 7:30:00, Duration: 30 day, Stop date: 08/17/13 7:30:00 Tablet should not be chewed or crushed.(Same as: Protonix) Saline Flush 0.9% 5 ml, Route: IVP, Drug Form: INJ, 07/17/2013 07/18/2013 Discontinued Dosing Weight 109.091, kg, PRN, PRN Line Flush, Start date: 07/17/13 19:48:00, Duration: 30 day, Stop date: 08/16/13 19:47:00 Same as: BD Posiflush Sterile Saline Flush 0.9% 5 ml, Route: IVP, Drug Form: INJ, 07/17/2013 07/18/2013 Discontinued Dosing Weight 109.091, kg, Q12H, Start date: 07/17/13 21:00:00, Duration: 30 day, Stop date: 08/16/13 9:00:00 Same as: BD Posiflush Sterile Vasotec 10 mg, 1 tab, Route: PO, Drug form: 07/19/2013 07/18/2013 Canceled TAB, Daily, Start date: 07/19/13 9:00:00, Duration: 30 day, Stop date: 08/17/13 9:00:00 (Same as: Vasotec) Vicodin HP 10 mg-300 1 tab, PO, Q4H, # 50 tab, 0 07/18/2013 07/18/2013 Discontinued mg oral tablet Refill(s) Results ELECTROLYTES Most recent to 1 oldest [Reference Range]: Sodium Lvl [135-145 143 mEq/L mEq/L] (07/13/2013 15:30:00 [facility]) Potassium Lvl 3.5 mEq/L [3.5-5.1 mEq/L] (07/13/2013 15:30:00 [facility]) Chloride Lvl [95-109 103 mEq/L mEq/L] (07/13/2013 15:30:00 [facility]) CO2 [24-32 mEq/L] 34 mEq/L *HI* (07/13/2013 15:30:00 [facility]) AGAP [10.0-20.0 9.5 mEq/L mEq/L] *LOW* (07/13/2013 15:30:00 [facility]) CHEM PANEL Most recent to 1 oldest [Reference Range]: Creatinine Lvl 0.7 mg/dL [0.5-1.4 mg/dL] (07/13/2013 15:30:00 [facility]) eGFR 96 mL/min/1.73m2 1 *NA* (07/13/2013 15:30:00 [facility]) BUN [7-22 mg/dL] 7 mg/dL (07/13/2013 15:30:00 [facility]) B/C Ratio [6-25] 10 (07/13/2013 15:30:00 [facility]) Glucose Lvl [70-99 102 mg/dL 2 mg/dL] *HI* (07/13/2013 15:30:00 [facility]) Total Protein 7.1 g/dL [6.4-8.4 g/dL] (07/13/2013 15:30:00 [facility]) Albumin Lvl [3.5-5.0 3.3 g/dL g/dL] *LOW* (07/13/2013 15:30:00 [facility]) Globulin [2.0-4.0 3.8 g/dL g/dL] (07/13/2013 15:30:00 [facility]) A/G Ratio [0.7-1.6] 0.9 (07/13/2013 15:30:00 [facility]) Calcium Lvl 8.5 mg/dL [8.5-10.5 mg/dL] (07/13/2013 15:30:00 [facility]) ALT [0-65 unit/L] 29 unit/L (07/13/2013 15:30:00 [facility]) AST [0-37 unit/L] 24 unit/L (07/13/2013 15:30:00 [facility]) Alk Phos [39-136 84 unit/L unit/L] (07/13/2013 15:30:00 [facility]) Bili Total [0.2-1.3 0.4 mg/dL mg/dL] (07/13/2013 15:30:00 [facility]) 1Result Comment: The eGFR is calculated using [...] from the National Kidney Disease Education Program ( NKDEP) which additionally recommends that when the eGFR is used in patients with extremes of body mass index for purposes of drug dosing, the eGFR should be mul tiplied by the estimated BMI. 2Interpretive Data: Adult reference range values reflect the clinical guidelines of the [place] [employer]. HEMATOLOGY Most recent to 1 oldest [Reference Range]: WBC [3.7-10.4 K/CMM] 9.6 K/CMM (07/13/2013 15:30:00 [facility]) RBC [4.20-5.40 4.74 M/CMM M/CMM] (07/13/2013:30: [facility]) Hgb [12.0-16.0 g/dL] 14.3 g/dL (07/13/2013:: [facility]) Hct [36.0-48.0 %] 42.5 % (07/13/2013:30: [facility]) MCV [81.0-99.0 fL] 89.7 fL (07/13/2013:30:00 [facility]) MCH [27.0-31.0 pg] 30.1 pg (07/13/2013 15:30:00 [facility]) MCHC [32.0-36.0 33.6 g/dL g/dL] (07/13/2013:30:00 [facility]) RDW [11.5-14.5 %] 15.2 % *HI* (07/13/2013 15:30:00 [facility]) Platelet [133-450 290 K/CMM K/CMM] (07/13/2013 15:30:00 [facility]) MPV [7.4-10.4 fL] 8.9 fL (07/13/2013 15:30:00 [facility]) Segs [45.0-75.0 %] 42.2 % *LOW* (07/13/2013 15:30:00 [facility]) Lymphocytes 44.8 % [20.0-40.0 %] *HI* (07/13/2013 15:30:00 [facility]) Monocytes [2.0-12.0 9.5 % %] (07/13/2013 15:30:00 [facility]) Eosinophils [0.0-4.0 2.6 % %] (07/13/2013 15:30:00 [facility]) Basophils [0.0-1.0 0.9 % %] (07/13/2013 15:30:00 [facility]) Segs-Bands # 4.0 K/CMM [1.5-8.1 K/CMM] (07/13/2013 15:30:00 [facility]) Lymphocytes # 4.3 K/CMM [1.0-5.5 K/CMM] (07/13/2013 15:30:00 [facility]) Monocytes # [0.0-0.8 0.9 K/CMM K/CMM] *HI* (07/13/2013 15:30:00 [facility]) Eosinophils # 0.3 K/CMM [0.0-0.5 K/CMM] (07/13/2013 15:30:00 [facility]) Basophils # [0.0-0.2 0.1 K/CMM K/CMM] (07/13/2013 15:30:00 [facility]) Medications Administered During Your Visit No data available for this section Immunizations No data available for this section Procedures Procedure Type Body Site Date of Procedure Related Diagnosis Joint replacement1 Primary repair of umbilical hernia Repair of diaphragmatic hiatal hernia Tonsillectomy 23398 Social History Social History Type Response Smoking Status Use: Never smoker. Tobacco smoke exposure: None. Did the Patient Smoke Cigarettes Anytime During the Last 365 Days? No. Cessation Counseling Provided? No.
--- OUTSIDE RECORDS SUMMARY | 2018-02-08 06:06 | XMS REPORT | CCD ---
Author Author Auto Generated Organization [facility] Outpatient [facility] - [place] Address Unknown Phone Unavailable Care Team Providers Care Tongue And Quarter Stitcher Name Role Phone Deepak Juárez CP Allergies, Adverse Reactions, Alerts Substance Reaction Status penicillins Active
--- OUTSIDE RECORDS SUMMARY | 2018-02-08 06:06 | XMS REPORT | CCD ---
Author Author Auto Generated Organization [facility] Outpatient [facility] [place] Address Unknown Phone Unavailable Care Team Providers Care Outer Diameter Grinder Name Role Phone Deepak Juárez CP Allergies, Adverse Reactions, Alerts Substance Reaction Status penicillins Active
--- OUTSIDE RECORDS SUMMARY | 2018-02-08 06:06 | XMS REPORT | CCD ---
Author Author Auto Generated Organization [facility] Address Unknown Phone Unavailable Care Team Providers Care Welding Teacher Name Role Phone John Paul Garcia RP Allergies, Adverse Reactions, Alerts Substance Reaction Status penicillins Active
--- OUTSIDE RECORDS SUMMARY | 2018-02-08 06:07 | XMS REPORT ---
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
--- OUTSIDE RECORDS SUMMARY | 2018-02-08 06:07 | XMS REPORT ---
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
--- OUTSIDE RECORDS SUMMARY | 2018-02-08 06:07 | XMS REPORT ---
Author Author Rufina Azar Organization [employer] Address Unknown Phone Unavailable Care Team Providers Care Mother Baby Rn Name Role Phone Rufina Azar CP Unavailable Allergies, Adverse Reactions, Alerts Substance Reaction Event Type Penicillin hives/purple Drug Allergy Problems Problem Type Condition Code Onset Dates Condition Status Assessment Sicca syndrome M35.00 Active Assessment Acute right ankle pain M25.571 Active Problem Rheumatoid arthritis of multiple sites without organ or system involvement with positive rheumatoid factor M05.79 Active Assessment Rheumatoid arthritis of multiple sites without organ or system involvement with positive rheumatoid factor M05.79 Active Problem Sicca syndrome M35.00 Active Assessment Pain, joint, multiple sites M25.50 Active Assessment Fibromyalgia M79.7 Active Assessment High risk medication use Z79.899 Active Assessment Counseling NOS Z71.9 Active Medications Medication Code System Code Instructions Start Date End Date Status Dosage Flonase [facility] 05782389469 50 MCG/ACT Nasally Once a day Active 1 spray in each nostril Lisinopril-Hydrochlorothiazide ND 35226465294 20-25 MG Orally Once a day Active 1 tablet Enbrel SureClick [facility] 48046622251 50 MG/ML Subcutaneous Once a week Active 1 ml Folic Acid ND 24120695963 1 mg Orally Once a day Active 2 tabs Gabapentin ND 35451353437 100 MG Orally bedtime Active 2 capsule Metoprolol Succinate ER ND 86934105208 25 MG Orally Once a day Active 1 tablet Ranitidine HCl ND 74145984584 300 MG Orally Once a day Active 1 capsule at bedtime Methotrexate ND 47014634254 2.5 MG Active TAKE 4 TABLETS BY MOUTH ONCE WEEKLY Humira Pen ND 64670589015 40 MG/0.8ML Subcutaneous every 2 weeks Feb 08, 2017 Active 0.8 ml Enbrel SureClick [facility] 19849562588 50 MG/ML Subcutaneous Once a week Feb 08, 2017 Inactive 1 ml Meloxicam ND 69572569409 7.5 MG x 4 weeks Once a day prn with food Feb 08, 2017 Inactive 1 tablet Fluoxetine HCl [facility] 66186431058 40 MG Orally Once a day Active 1 capsule in the morning Pravastatin Sodium [facility] 06977256975 20 MG Orally Once a day Active 1 tablet Methotrexate ND 14460235534 2.5 MG Orally Once weekly Active 4 tabs Celecoxib [facility] 31580955107 200 MG Orally Twice a day Feb 08, 2017 Active 1 tab(s) with food as needed Vital Signs Date/Time: Feb 08, 2017 Height 62 in Blood Pressure Diastolic 78 mm Hg Blood Pressure Systolic 156 mm Hg Weight 251 lbs Results No Known Results Summary Purpose eClinicalWorks Submission
--- OUTSIDE RECORDS SUMMARY | 2018-02-08 06:07 | XMS REPORT ---
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
--- OUTSIDE RECORDS SUMMARY | 2018-02-08 06:07 | XMS REPORT ---
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 or system involvement with positive rheumatoid factor M05.79 Active Assessment Left medial knee pain M25.562 Active Problem Sicca syndrome M35.00 Active Assessment Counseling NOS Z71.9 Active Assessment Pain, joint, multiple sites M25.50 Active Assessment Rheumatoid arthritis of multiple sites without organ or system involvement with positive rheumatoid factor M05.79 Active Assessment High risk medication use Z79.899 Active Medications Medication Code System Code Instructions Start Date End Date Status Dosage Lisinopril-Hydrochlorothiazide [facility] [address]-73 20-25 MG Orally Once a day Active 1 tablet Ranitidine HCl [facility] [address]-21 300 MG Orally Once a day Active 1 capsule at bedtime Enbrel SureClick [facility] [address]-29 50 MG/ML Subcutaneous Once a week Active 1 ml Metoprolol Succinate ER [facility] [address]-27 25 MG Orally Once a day Active 1 tablet Pravastatin Sodium [facility] [address]-26 20 MG Orally Once a day Active 1 tablet Gabapentin [facility] [address]-63 100 MG Orally bedtime Active 2 capsule Enbrel SureClick [facility] 11374526218 50 MG/ML Subcutaneous Once a week Active 1 ml Methotrexate [facility] [address]-57 2.5 MG Active TAKE 4 TABLETS BY MOUTH ONCE WEEKLY Methotrexate [facility] [address]-52 2.5 MG Orally Once weekly Active 4 tabs Meloxicam [facility] [address]-34 7.5 MG x 4 weeks Once a day prn with food Active 1 tablet Fluoxetine HCl [facility] [address]-47 40 MG Orally Once a day Active 1 capsule in the morning Meclizine HCl [facility] [address]-51 25 MG Orally Once a day Active 1 tablet as needed Flonase [facility] [address]-08 50 MCG/ACT Nasally Once a day Active 1 spray in each nostril Folic Acid [facility] [address]-33 1 mg Orally Once a day Active 2 tabs Vital Signs Date/Time: Dec 16, 2016 Height 62 in Blood Pressure Diastolic 79 mm Hg Blood Pressure Systolic 150 mm Hg Weight 247.6 lbs Results No Known Results Summary Purpose eClinicalWorks Submission
--- OUTSIDE RECORDS SUMMARY | 2018-02-08 06:07 | XMS REPORT ---
Author Author Rufina Azar Organization [employer] Address Unknown Phone Unavailable Care Team Providers Care Focused Factory Manager Name Role Phone Rufina Azar CP Unavailable Allergies, Adverse Reactions, Alerts Substance Reaction Event Type Penicillin hives/purple Drug Allergy Problems Problem Type Condition Code Onset Dates Condition Status Assessment Rash R21 Active Assessment Sicca syndrome M35.00 Active Assessment Acute [...] Instructions Start Date End Date Status Dosage Methotrexate [facility] 28917313084 2.5 MG Orally Once weekly Active 4 tabs Folic Acid ND 83455859036 1 mg Orally Once a day Active 2 tabs Lisinopril-Hydrochlorothiazide ND 14388018345 20-25 MG Orally Once a day Active 1 tablet Metoprolol Succinate ER ND 91701724485 25 MG Orally Once a day Active 1 tablet Humira Pen ND 94493145242 40 MG/0.8ML Subcutaneous every 2 weeks Active 0.8 ml Celecoxib ND 71049064776 200 MG Orally Twice a day Active 1 tab(s) with food as needed Pravastatin Sodium ND 46827539550 20 MG Orally Once a day Active 1 tablet Flonase ND 65528394635 50 MCG/ACT Nasally Once a day Active 1 spray in each nostril Ranitidine HCl ND 09781202547 300 MG Orally Once a day Active 1 capsule at bedtime Fluoxetine HCl [facility] 14451584520 40 MG Orally Once a day Active 1 capsule in the morning Vital Signs Date/Time: Jun 14, 2017 Height 62 in Blood Pressure Diastolic 79 mm Hg Blood Pressure Systolic 138 mm Hg Weight 246 lbs Results No Known Results Summary Purpose eClinicalWorks Submission
--- OUTSIDE RECORDS SUMMARY | 2018-02-08 06:07 | XMS REPORT ---
Author Author Rufina Azar [facility] eClinicalWorks Address Unknown Phone Unavailable Care Team Providers Care Police Cadet Name Role Phone Rufina Azar CP Unavailable [...] Instructions Start Date End Date Status Dosage Ranitidine HCl [facility] 17212247882 300 MG Orally Once a day Active 1 capsule at bedtime Ciprofloxacin HCl [facility] 44738696307 500 MG Orally Once a day Active 1 tablet Pravastatin Sodium [facility] 54635171892 20 MG Orally Once a day Active 1 tablet Lyrica [facility] 72594570982 75 MG Orally bedtime for a week then twice a day August 31, 2017 Active 1 cap(s) Vitamin D-3 [facility] 22999887032 1000 UNIT Orally Once a day Active 1 capsule Flonase [facility] 22731456584 50 MCG/ACT Nasally Once a day Active 1 spray in each nostril Centrum Silver 50+Women [facility] 82329787233 - Orally Active not defined Ketorolac Tromethamine [facility] 35198598840 0.5 % Ophthalmic Four times a day Active 1 drop into affected eye as needed ProAir HFA [facility] 29252720325 108 (90 Base) MCG/ACT Inhalation every 6 hrs Active 2 puffs as needed Metoprolol Succinate ER ND 51019623157 25 MG Orally Once a day Active 1 tablet Lisinopril-Hydrochlorothiazide ND 53898872941 20-25 MG Orally Once a day Active 1 tablet Sertraline HCl ND 13367413339 50 MG Orally Once a day Active 1 tablet Fluconazole ND 77550588941 150 MG Orally Active 1 tablet Folic Acid [facility] 25402525474 1 mg Orally Once a day Feb 28, 2018 Active 2 tabs Doxycycline Hyclate [facility] 23744624607 100 MG Orally every 12 hrs Active 1 capsule Celecoxib [facility] 19487566121 200 MG Orally Twice a day Active 1 tab(s) with food as needed Fluoxetine HCl [facility] 88541932874 40 MG Orally Once a day Active 1 capsule in the morning Methotrexate [facility] 67457279099 2.5 mg Orally Once weekly Active 4 tabs Vital Signs Date/Time: September 14, 2017 Height 62 in Blood Pressure Diastolic 81 mm Hg Blood Pressure Systolic 129 mm Hg Weight 245 lbs Results No Known Results Summary Purpose eClinicalWorks Submission
--- OUTSIDE RECORDS SUMMARY | 2018-02-08 06:07 | XMS REPORT ---
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 system involvement with positive rheumatoid factor M05.79 Active Problem 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 Assessment High risk medication use Z79.899 Active Assessment Counseling NOS Z71.9 Active Assessment Left medial knee pain M25.562 Active Assessment Rheumatoid arthritis of multiple sites without organ or system involvement with positive rheumatoid factor M05.79 Active Medications Medication Code System Code Instructions Start Date End Date Status Dosage Methotrexate [facility] 73085735418 2.5 MG Orally Once weekly Active 4 tabs Ranitidine HCl [facility] 10215207542 300 MG Orally Once a day Active 1 capsule at bedtime Pravastatin Sodium ND 10702909883 20 MG Orally Once a day Active 1 tablet Lisinopril-Hydrochlorothiazide ND 50599170074 20-25 MG Orally Once a day Active 1 tablet Ciprofloxacin HCl ND 31805110586 500 MG Orally Once a day Active 1 tablet Doxycycline Hyclate ND 99173128597 100 MG Orally every 12 hrs Active 1 capsule Lyrica ND 74121258587 75 MG Orally bedtime for a week then twice a day Inactive 1 cap(s) Centrum Silver 50+Women [facility] 53164045095 - Orally Active not defined Metoprolol Succinate ER ND 23441451775 25 MG Orally Once a day Active 1 tablet Vitamin D-3 ND 93480649483 1000 UNIT Orally Once a day Active 1 capsule Sertraline HCl [facility] 44625818840 50 MG Orally Once a day Active 1 tablet Cimzia [facility] 80407375107 2 X 200 MG Subcutaneous October 11, 2017 Active as directed Flonase [facility] 82244433467 50 MCG/ACT Nasally Once a day Active 1 spray in each nostril Fluoxetine HCl [facility] 76233975433 40 MG Orally Once a day Active 1 capsule in the morning Phentermine HCl [facility] 93459760802 37.5 MG Orally Once a day Active 1 capsule Ketorolac Tromethamine [facility] 67662661087 0.5 % Ophthalmic Four times a day Active 1 drop into affected eye as needed Fluconazole [facility] 72032941012 150 MG Orally Active 1 tablet Celecoxib [facility] 10394220508 200 MG Orally Twice a day Active 1 tab(s) with food as needed Folic Acid [facility] 19691540308 1 mg Orally Once a day Active 2 tabs ProAir HFA [facility] 90604561277 108 (90 Base) MCG/ACT Inhalation every 6 hrs Active 2 puffs as needed Vital Signs Date/Time: October 11, 2017 Height 62 in Blood Pressure Diastolic 91 mm Hg Blood Pressure Systolic 160 mm Hg Weight 241.4 lbs Results No Known Results Summary Purpose eClinicalWorks Submission
--- OUTSIDE RECORDS SUMMARY | 2018-02-08 06:07 | XMS REPORT ---
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
--- OUTSIDE RECORDS SUMMARY | 2018-02-08 06:07 | XMS REPORT ---
Author Author Rufina Azar Organization [employer] Address Unknown Phone Unavailable Care Team Providers Care Title Clerk Name Role Phone Rufina Azar CP Unavailable Allergies, Adverse Reactions, Alerts Substance Reaction Event Type Penicillin hives/purple Drug Allergy Problems Problem Type Condition Code Onset Dates Condition Status Assessment Sicca syndrome M35.00 Active Problem Rheumatoid [...] Date End Date Status Dosage Ranitidine HCl [facility] [address]-52 300 MG Orally Once a day Active 1 capsule at bedtime Meloxicam [facility] [address]-52 7.5 MG x 4 weeks Once a day prn with food Active [address] [facility] [address]-26 50 MCG/ACT Nasally Once a day Active 1 spray in each nostril Meclizine HCl [facility] [address]-38 25 MG Orally Once a day Active 1 tablet as needed Folic Acid [facility] [address]-74 1 mg Orally Once a day Active 2 tabs Fluoxetine HCl [facility] [address]-69 40 MG Orally Once a day Active 1 capsule in the morning Gabapentin [facility] [address]-30 100 MG Orally bedtime Active 2 capsule Lisinopril-Hydrochlorothiazide [facility] [address]-27 20-25 MG Orally Once a day Active 1 tablet Pravastatin Sodium [facility] [address]-04 20 MG Orally Once a day Active 1 tablet Metoprolol Succinate ER [facility] [address]-83 25 MG Orally Once a day Active [address] [facility] [address]-58 2.5 MG Orally Once weekly Active 4 tabs Enbrel Daryl [facility] [address]-99 50 MG/ML Subcutaneous Once a week August 24, 2016 Active 1 ml Vital Signs Date/Time: October 05, 2016 Height 62 in Blood Pressure Diastolic 77 mm Hg Blood Pressure Systolic 149 mm Hg Weight 250 lbs Results No Known Results Summary Purpose eClinicalWorks Submission
--- OUTSIDE RECORDS SUMMARY | 2018-02-08 06:07 | XMS REPORT ---
Author Author Rufina Azar Organization [employer] Address Unknown Phone Unavailable Care Team Providers Care Employment Programs Analyst Name Role Phone Rufina Azar CP Unavailable [...] Instructions Start Date End Date Status Dosage ProAir HFA [facility] 97657403137 108 (90 Base) MCG/ACT Inhalation every 6 hrs Active 2 puffs as needed Fluconazole ND 52858324972 150 MG Orally Active 1 tablet Celecoxib ND 13489454568 200 MG Orally Twice a day Active 1 tab(s) with food as needed Ciprofloxacin HCl ND 63671093615 500 MG Orally Once a day Active 1 tablet Metoprolol Succinate ER ND 39091843279 25 MG Orally Once a day Active 1 tablet Ranitidine HCl ND 62936897711 300 MG Orally Once a day Active 1 capsule at bedtime Flonase ND 99264030993 50 MCG/ACT Nasally Once a day Active 1 spray in each nostril Folic Acid ND 13411167863 1 mg Orally Once a day Feb 28, 2018 Active 2 tabs Lyrica ND 06169114196 75 MG Orally bedtime for a week then twice a day August 31, 2017 Active 1 cap(s) Sertraline HCl ND 03398642096 50 MG Orally Once a day Active 1 tablet Vitamin D-3 ND 17714023759 1000 UNIT Orally Once a day Active 1 capsule Lisinopril-Hydrochlorothiazide ND 51931945843 20-25 MG Orally Once a day Active 1 tablet Pravastatin Sodium ND 56849786220 20 MG Orally Once a day Active 1 tablet Centrum Silver 50+Women ND 55620802763 - Orally Active not defined Methotrexate [facility] 59676691476 2.5 mg Orally Once weekly Active 4 tabs Ketorolac Tromethamine [facility] 86496055244 0.5 % Ophthalmic Four times a day Active 1 drop into affected eye as needed Doxycycline Hyclate [facility] 95306027781 100 MG Orally every 12 hrs Active 1 capsule Fluoxetine HCl [facility] 79747522231 40 MG Orally Once a day Active 1 capsule in the morning Vital Signs Date/Time: September 28, 2017 Height 62 in Blood Pressure Diastolic 91 mm Hg Blood Pressure Systolic 144 mm Hg Weight 243 lbs Results No Known Results Summary Purpose eClinicalWorks Submission
--- OUTSIDE RECORDS SUMMARY | 2018-02-08 06:07 | XMS REPORT ---
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
--- OUTSIDE RECORDS SUMMARY | 2018-02-08 06:07 | XMS REPORT ---
Author Author Rufina Azar Organization [employer] Address Unknown Phone Unavailable Care Team Providers Care Passenger Rate Clerk Name Role Phone Rufina Azar CP [...]
--- OUTSIDE RECORDS SUMMARY | 2018-02-08 06:07 | XMS REPORT ---
Author Author Rufina Azar Organization [employer] Address Unknown Phone Unavailable Care Team Providers Care Vibrator Equipment Tester Name Role Phone Rufina Azar CP Unavailable Allergies No Known Allergies Problems Problem Type Condition Code Onset Dates Condition Status Problem Rheumatoid arthritis of multiple sites without organ or system involvement with positive rheumatoid factor M05.79 Active Assessment Pain in right wrist M25.531 Active Problem Sicca syndrome M35.00 Active Assessment Stiffness of right wrist joint M25.631 Active Medications No Known Medications Vital Signs Date/Time: Jun 22, 2017 Height 62 in Blood Pressure Diastolic 79 mm Hg Blood Pressure Systolic 138 mm Hg Weight 246 lbs Results No Known Results Summary Purpose eClinicalWorks Submission
--- OUTSIDE RECORDS SUMMARY | 2018-02-08 06:07 | XMS REPORT ---
Author Author Rufina Azar Organization [employer] Address Unknown Phone Unavailable Care Team Providers Care Mechanical Technician Name Role Phone Rufina Azar CP [...] Instructions Start Date End Date Status Dosage Lyrica [facility] 60122562146 75 MG Orally bedtime for a week then twice a day Active 1 cap(s) Ciprofloxacin HCl [facility] 67304525705 500 MG Orally Once a day Active 1 tablet Ketorolac Tromethamine [facility] 52606391681 0.5 % Ophthalmic Four times a day Active 1 drop into affected eye as needed Lisinopril-Hydrochlorothiazide ND 09649051011 20-25 MG Orally Once a day Active 1 tablet Celecoxib ND 12218985785 200 MG Orally Twice a day Active 1 tab(s) with food as needed Phentermine HCl ND 08683362266 37.5 MG Orally Once a day Active 1 capsule Metoprolol Succinate ER ND 91599944037 25 MG Orally Once a day Active 1 tablet Fluconazole ND 47374809784 150 MG Orally Active 1 tablet ProAir HFA [facility] 99333556397 108 (90 Base) MCG/ACT Inhalation every 6 hrs Active 2 puffs as needed Methotrexate ND 45857878481 2.5 MG Orally Once weekly Active 4 tabs Cimzia ND 42392169333 2 X 200 MG Subcutaneous Active as directed Centrum Silver 50+Women ND 31574439168 - Orally Active not defined Doxycycline Hyclate ND 65755791582 100 MG Orally every 12 hrs Active 1 capsule Ranitidine HCl ND 59029497574 300 MG Orally Once a day Active 1 capsule at bedtime Fluoxetine HCl NDC 05747275097 40 MG Orally Once a day Active 1 capsule in the morning Vitamin D-3 [facility] 02001365384 1000 UNIT Orally Once a day Active 1 capsule Folic Acid [facility] 58531077408 1 mg Orally Once a day Active 2 tabs Pravastatin Sodium [facility] 04673019902 20 MG Orally Once a day Active 1 tablet Flonase [facility] 06083947693 50 MCG/ACT Nasally Once a day Active 1 spray in each nostril Sertraline HCl [facility] 60447129174 50 MG Orally Once a day Active 1 tablet Vital Signs Date/Time: Nov 24, 2017 Height 62 in Blood Pressure Diastolic 73 mm Hg Blood Pressure Systolic 124 mm Hg Weight 238 lbs Results No Known Results Summary Purpose eClinicalWorks Submission
--- OUTSIDE RECORDS SUMMARY | 2018-02-08 06:07 | XMS REPORT ---
Author Author Rufina Azar Organization [employer] Address Unknown Phone Unavailable Care Team Providers Care Buncher Machine Name Role Phone Rufina Azar CP Unavailable [...]
--- OUTSIDE RECORDS SUMMARY | 2018-02-08 06:07 | XMS REPORT ---
Author Author Rufina Azar Organization e[employer] Address Unknown Phone Unavailable Care Team Providers Care Road Engineer Name Role Phone Rufina Azar CP [...] Date End Date Status Dosage Folic Acid [facility] 93844398473 1 mg Orally Once a day October 09, 2017 Active 2 tabs Fluoxetine HCl [facility] 89237591999 40 MG Orally Once a day Active 1 capsule in the morning Celecoxib ND 72737496495 200 MG Orally Twice a day July 11, 2017 Active 1 tab(s) with food as needed Metoprolol Succinate ER ND 95701977208 25 MG Orally Once a day Active 1 tablet Enbrel SureClick [facility] 78293822675 50 MG/ML Subcutaneous Once a week Active 1 ml Humira Pen ND 50006577809 40 MG/0.8ML Subcutaneous every 2 weeks August 10, 2017 Active 0.8 ml Ranitidine HCl ND 25106093064 300 MG Orally Once a day Active 1 capsule at bedtime Pravastatin Sodium ND 77628464917 20 MG Orally Once a day Active 1 tablet Lisinopril-Hydrochlorothiazide ND 28814799349 20-25 MG Orally Once a day Active 1 tablet Flonase ND 80665645139 50 MCG/ACT Nasally Once a day Active 1 spray in each nostril Methotrexate ND 55127529850 2.5 MG Orally Once weekly Active 4 tabs Gabapentin [facility] 39617627525 100 MG Orally bedtime Active 2 capsule Vital Signs Date/Time: Apr 12, 2017 Height 62 in Blood Pressure Diastolic 83 mm Hg Blood Pressure Systolic 173 mm Hg Weight 247.8 lbs Results Name Result Date Reference Range Unit Abnormality Flag CRP (C-REACTIVE PROTEIN), SERUM ----CRP 0.5 [id number] <0.5 mg/dL H ESR (SED-RATE) ----ESR (SED-RATE) 24 [id number] <26 mm/hr TINY - ANTINUCLEAR ANTIBODY ----TINY SCREEN Negative [id number] Neg=<1:80 N ANTI-DOUBLE STRANDED DNA ----ANTI-dsDNA Negative [id number] See Below IU/mL N Summary Purpose eClinicalWorks Submission
--- OUTSIDE RECORDS SUMMARY | 2018-02-08 06:07 | XMS REPORT ---
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
--- OUTSIDE RECORDS SUMMARY | 2018-02-08 06:07 | XMS REPORT ---
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 Assessment Fibromyalgia M79.7 Active Assessment Sicca syndrome M35.00 Active Problem Sicca syndrome M35.00 Active Problem Rheumatoid arthritis of multiple sites without organ or system involvement with positive rheumatoid factor M05.79 Active Problem 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 Assessment Counseling NOS Z71.9 Active Assessment Pain, joint, multiple sites M25.50 Active Assessment Rheumatoid arthritis of multiple sites without organ or system involvement with positive rheumatoid factor M05.79 Active Assessment High risk medication use Z79.899 Active Medications Medication Code System Code Instructions Start Date End Date Status Dosage Lyrica [facility] 94922792099 75 MG Orally bedtime for a week then twice a day August 31, 2017 Active 1 cap(s) Humira Pen [facility] 61844684862 40 MG/0.8ML Subcutaneous every 2 weeks Active 0.8 ml Metoprolol Succinate ER [facility] 27338150660 25 MG Orally Once a day Active 1 tablet ProAir HFA [facility] 08595758283 108 (90 Base) MCG/ACT Inhalation every 6 hrs Active 2 puffs as needed Fluconazole [facility] 35363462165 150 MG Orally Active 1 tablet Medrol [facility] 43343231451 4 MG Orally Once a day August 27, 2017 September 02, 2017 Active as directed Sertraline HCl [facility] 04485537950 50 MG Orally Once a day Active 1 tablet Lisinopril-Hydrochlorothiazide [facility] 41833055164 20-25 MG Orally Once a day Active 1 tablet Ranitidine HCl [facility] 41413188698 300 MG Orally Once a day Active 1 capsule at bedtime Vitamin D-3 [facility] 01421108106 1000 UNIT Orally Once a day Active 1 capsule Folic Acid [facility] 67774293937 1 mg Orally Once a day Active 2 tabs Methotrexate ND 33735157947 2.5 MG Orally Once weekly Active 4 tabs Meloxicam ND 11803849636 7.5 MG Orally Once a day Active 1 tablet Fluoxetine HCl [facility] 39521086367 40 MG Orally Once a day Active 1 capsule in the morning Pravastatin Sodium [facility] 42086088889 20 MG Orally Once a day Active 1 tablet Flonase [facility] 20628739694 50 MCG/ACT Nasally Once a day Active 1 spray in each nostril Ciprofloxacin HCl [facility] 85157641707 500 MG Orally Once a day Active 1 tablet Celecoxib [facility] 69360113344 200 MG Orally Twice a day Active 1 tab(s) with food as needed Ketorolac Tromethamine [facility] 28613792916 0.5 % Ophthalmic Four times a day Active 1 drop into affected eye as needed Doxycycline Hyclate [facility] 04002653380 100 MG Orally every 12 hrs Active 1 capsule Centrum Silver 50+Women [facility] 12664247836 - Orally Active not defined Vital Signs Date/Time: August 31, 2017 Height 62 in Blood Pressure Diastolic 83 mm Hg Blood Pressure Systolic 141 mm Hg Weight 248 lbs Results No Known Results Summary Purpose eClinicalWorks Submission
--- OUTSIDE RECORDS SUMMARY | 2018-02-08 06:07 | XMS REPORT | Summary of Care ---
Author Organization Unknown Address Unknown Phone Unavailable Encounter [facility]tr_laith(FIN) [id number] Date(s): 08/02/13 - 08/02/13 [facility] Outpatient Imaging - [address] [address] Discharge Disposition: Home Physician Attending: Deepak Juárez Reason for Visit 564.00 - CONSTIPATION NO Problem List Condition Effective Dates Status Health Status Informant Asthma(Confirmed) Active Depression(Confirmed Active ) GERD - Active Gastro-esophageal reflux disease(Confirmed) Hypertension(Confirm Active ed) Prolapsed Active uterus(Confirmed) Rheumatoid Active arthritis(Confirmed) Vaginal Active hysterectomy(Confirm ed) Allergies, Adverse Reactions, Alerts Substance Reaction Severity Status penicillins Active Medications No data available for this section Medications Administered During Your Visit No data available for this section Immunizations No data available for this section Social History Social History Type Response Smoking Status Never smoker, Exposure to Tobacco Smoke None, Cigarette Smoking Last 365 Days No, Reg Smoking Cessation Counseling No
--- OUTSIDE RECORDS SUMMARY | 2018-02-08 06:07 | XMS REPORT ---
Author Author Rufina Azar Organization [employer] Address Unknown Phone Unavailable Care Team Providers Care Supervisor Screen Making Name Role Phone Rufina Azar CP Unavailable Allergies, Adverse Reactions, Alerts Substance Reaction Event Type Penicillin hives/purple Drug Allergy Encounters Encounter Location Date [facility] November 06, 2015 Problems Problem Type Condition ICD-9 Code Onset Dates Condition Status Assessment Wrist pain, left M25.532 Active Assessment Wrist pain, right M25.531 Active Assessment Rheumatoid arthritis of multiple sites without organ or system involvement with positive rheumatoid factor M05.79 Active Assessment High risk medication use Z79.899 Active Problem Rheumatoid arthritis of multiple sites without organ or system involvement with positive rheumatoid factor M05.79 Active Assessment Counseling NOS Z71.9 Active Assessment Hair loss L65.9 Active Assessment Fibromyalgia M79.7 Active Assessment Pain, joint, multiple sites M25.50 Active Medications Medication Code System Code Instructions Start Date End Date Status Dosage Methotrexate [facility] [address]-69 2.5 MG Orally Once weekly Active 8 tablets Pravastatin Sodium [facility] [address]-41 20 MG Orally Once a day Active 1 tablet Humira Pen [facility] [address]-70 40 MG/0.8ML Subcutaneous once weekly Active 0.8 ml Fluoxetine HCl [facility] [address]-84 40 MG Orally Once a day Active 1 capsule in the morning Meclizine HCl [facility] [address]-66 25 MG Orally Once a day Active 1 tablet as needed Folic Acid [facility] [address]-26 1 MG Orally Once a day Active 1 tablet Lisinopril-Hydrochlorothiazide [facility] [address]-86 20-25 MG Orally Once a day Active 1 tablet Ranitidine HCl [facility] [address]-94 300 MG Orally Once a day Active 1 capsule at bedtime Meloxicam [facility] [address]-88 7.5 MG Orally Active 1 tablet Gabapentin [facility] [address]-99 300 MG Orally Three times a day Active 1 capsule Metoprolol Succinate ER [facility] [address]-85 25 MG Orally Once a day Active 1 tablet Flonase [facility] [address]-50 50 MCG/ACT Nasally Once a day Active 1 spray in each nostril Social History Social History Element Qualifiers Date Reported Smoking status: . Are you a: Never Smoker November 06, 2015 Vital Signs Date/Time: November 06, 2015 Height 62 in Blood Pressure Diastolic 82 mm Hg Blood Pressure Systolic 146 mm Hg Weight 239.2 lbs Summary Purpose eClinicalWorks Submission
--- OUTSIDE RECORDS SUMMARY | 2018-02-08 06:07 | XMS REPORT ---
Author Author Rufina Azar Organization [employer] Address Unknown Phone Unavailable Care Team Providers Care Lathe Mechanic Name Role Phone Rufina Azar CP Unavailable Allergies No Known Allergies Problems Problem Type Condition Code Onset Dates Condition Status Problem Rheumatoid arthritis of multiple sites without organ or system involvement with positive rheumatoid factor M05.79 Active Assessment Pain in left wrist M25.532 Active Problem Sicca syndrome M35.00 Active Assessment Stiffness of left wrist joint M25.632 Active Assessment Swelling of joint, wrist, left M25.432 Active Medications No Known Medications Vital Signs Date/Time: Jun 23, 2017 Height 62 in Blood Pressure Diastolic 79 mm Hg Blood Pressure Systolic 138 mm Hg Weight 246 lbs Results No Known Results Summary Purpose eClinicalWorks Submission
--- OUTSIDE RECORDS SUMMARY | 2018-02-08 06:07 | XMS REPORT ---
Author Author Rufina Azar [facility] eClinicalWorks Address Unknown Phone Unavailable Care Team Providers Care Collaborating Supervising Physician Name Role Phone Rufina Azar CP Unavailable [...] Start Date End Date Status Dosage Lisinopril-Hydrochlorothiazide [facility] 43196601821 20-25 MG Orally Once a day Active 1 tablet Pravastatin Sodium [facility] 90748784655 20 MG Orally Once a day Active 1 tablet Centrum Silver 50+Women [facility] 22864868739 - Orally Active not defined Vitamin D-3 ND 01825736634 1000 UNIT Orally Once a day Active 1 capsule Cimzia [facility] 62912174627 2 X 200 MG Subcutaneous October 11, 2017 Active as directed Phentermine HCl [facility] 37646260543 37.5 MG Orally Once a day Active 1 capsule Flonase ND 79086423251 50 MCG/ACT Nasally Once a day Active 1 spray in each nostril Fluoxetine HCl [facility] 90672006926 40 MG Orally Once a day Active 1 capsule in the morning Sertraline HCl [facility] 76638604475 50 MG Orally Once a day Active 1 tablet Lyrica ND 96587779499 75 MG Orally bedtime for a week then twice a day Active 1 cap(s) Ciprofloxacin HCl ND 06189294154 500 MG Orally Once a day Active 1 tablet Celecoxib ND 90639949563 200 MG Orally Twice a day Active 1 tab(s) with food as needed Folic Acid ND 27708908571 1 mg Orally Once a day Active 2 tabs ProAir HFA [facility] 60244897685 108 (90 Base) MCG/ACT Inhalation every 6 hrs Active 2 puffs as needed Metoprolol Succinate ER [facility] 54375311131 25 MG Orally Once a day Active 1 tablet Methotrexate ND 56295040548 2.5 MG Orally Once weekly Active 4 tabs Ranitidine HCl [facility] 55074721223 300 MG Orally Once a day Active 1 capsule at bedtime Ketorolac Tromethamine [facility] 87191704359 0.5 % Ophthalmic Four times a day Active 1 drop into affected eye as needed Doxycycline Hyclate [facility] 16491872915 100 MG Orally every 12 hrs Active 1 capsule Fluconazole [facility] 44244296058 150 MG Orally Active 1 tablet Vital Signs Date/Time: October 12, 2017 Height 62 in Blood Pressure Diastolic 67 mm Hg Blood Pressure Systolic 116 mm Hg Weight 242 lbs Results No Known Results Summary Purpose eClinicalWorks Submission
--- OUTSIDE RECORDS SUMMARY | 2018-02-08 06:07 | XMS REPORT | Summary of Care ---
Author Author [facility] Outpatient Imaging - [place] Organization [facility] [place] Address Unknown Phone Unavailable Encounter [facility] Elderntr_laith(FIN) [id number] Date(s): 11/12/15 - 11/12/15 [facility] Outpatient Imaging - [place] [address] [place] [phone] [phone] Discharge Disposition: Home or Self Care Attending Physician: Lon Carrero MD Vital Signs No data available for this section Problem List Condition Effective Dates Status Health Status Informant Asthma(Confirmed) Active Depression(Confirmed Active ) GERD - Active Gastro-esophageal reflux disease(Confirmed) Hypertension(Confirm Active ed) Prolapsed Active uterus(Confirmed) Rheumatoid Active arthritis(Confirmed) Vaginal Active hysterectomy(Confirm ed) Allergies, Adverse Reactions, Alerts Substance Reaction Severity Status penicillins Active Medications No data available for this section Results No data available for this section Immunizations No data available for this section Procedures Procedure Date Related Diagnosis Body Site Joint replacement1 Primary repair of umbilical hernia Repair of diaphragmatic hiatal hernia Tonsillectomy 99590 Social History Social History Type Response Smoking Status Never smoker; Exposure to Tobacco Smoke None; Cigarette Smoking Last 365 Days No; Reg Smoking Cessation Counseling No Assessment and Plan No data available for this section
--- OUTSIDE RECORDS SUMMARY | 2018-02-08 06:07 | XMS REPORT ---
Author Author Rufina Azar Organization e[employer]Works Address Unknown Phone Unavailable Care Team Providers Care Hepatologist Name Role Phone Rufina Azar CP Unavailable [...]
--- OUTSIDE RECORDS SUMMARY | 2018-02-08 06:07 | XMS REPORT ---
Author Author Rufina Azar Organization e[employer]Works Address Unknown Phone Unavailable Care Team Providers Care Electrocardiograph Technician Name Role Phone Rufina Azar CP [...] Start Date End Date Status Dosage Lyrica ND 02503785188 75 MG Orally bedtime for a week then twice a day Active 1 cap(s) Ciprofloxacin HCl ND 75396141393 500 MG Orally Once a day Active 1 tablet Metoprolol Succinate ER ND 91347215784 25 MG Orally Once a day Active 1 tablet Flonase ND 63223440792 50 MCG/ACT Nasally Once a day Active 1 spray in each nostril Sertraline HCl ND 91759476965 50 MG Orally Once a day Active 1 tablet Cimzia ND 34218778596 2 X 200 MG Subcutaneous Active as directed Ranitidine HCl ND 35257248747 300 MG Orally Once a day Active 1 capsule at bedtime Centrum Silver 50+Women ND 42112849384 - Orally Active not defined Methotrexate ND 51982282115 2.5 MG Orally Once weekly Active 4 tabs Vitamin D-3 ND 14045111920 1000 UNIT Orally Once a day Active 1 capsule Phentermine HCl ND 01634301120 37.5 MG Orally Once a day Active 1 capsule ProAir HFA [facility] 00962471769 108 (90 Base) MCG/ACT Inhalation every 6 hrs Active 2 puffs as needed Ketorolac Tromethamine [facility] 83438949855 0.5 % Ophthalmic Four times a day Active 1 drop into affected eye as needed Fluoxetine HCl [facility] 71188429881 40 MG Orally Once a day Active 1 capsule in the morning Fluconazole [facility] 17109560062 150 MG Orally Active 1 tablet Celecoxib [facility] 48999161071 200 MG Orally Twice a day Active 1 tab(s) with food as needed Doxycycline Hyclate [facility] 23440016038 100 MG Orally every 12 hrs Active 1 capsule Pravastatin Sodium [facility] 00808950082 20 MG Orally Once a day Active 1 tablet Lisinopril-Hydrochlorothiazide [facility] 25610959211 20-25 MG Orally Once a day Active 1 tablet Folic Acid [facility] 12695933159 1 mg Orally Once a day Active 2 tabs Vital Signs Date/Time: Dec 15, 2017 Height 62 in Blood Pressure Diastolic 86 mm Hg Blood Pressure Systolic 145 mm Hg Weight 226.8 lbs Results No Known Results Summary Purpose eClinicalWorks Submission
--- OUTSIDE RECORDS SUMMARY | 2018-02-08 06:08 | XMS REPORT ---
Author Author Rufina Azar Organization [employer]ClinicalWorks Address Unknown Phone Unavailable Care Team Providers Care Commercial Producer Name Role Phone Rufina Azar CP Unavailable Allergies No Known Allergies Problems Problem Type Condition Code Onset Dates Condition Status Problem Rheumatoid arthritis of multiple sites without organ or system involvement with positive rheumatoid factor M05.79 Active Medications No Known Medications Results No Known Results Summary Purpose eClinicalWorks Submission
--- OUTSIDE RECORDS SUMMARY | 2018-02-08 06:08 | XMS REPORT ---
Author Author Rufina Azar Organization [employer] Address Unknown Phone Unavailable Care Team Providers Care Road Mender Name Role Phone Rufina Azar CP Unavailable Allergies No Known Allergies Problems Problem Type Condition Code Onset Dates Condition Status Problem Rheumatoid arthritis of multiple sites without organ or system involvement with positive rheumatoid factor M05.79 Active Medications No Known Medications Results No Known Results Summary Purpose eClinicalWorks Submission
--- OUTSIDE RECORDS SUMMARY | 2018-02-08 06:08 | XMS REPORT ---
Author Author Rufina Azar Organization [employer] Address Unknown Phone Unavailable Care Team Providers Care Aging Room Operator Name Role Phone Rufina Azar CP Unavailable Allergies No Known Allergies Problems Problem Type Condition Code Onset Dates Condition Status Problem Rheumatoid arthritis of multiple sites without organ or system involvement with positive rheumatoid factor M05.79 Active Medications No Known Medications Results No Known Results Summary Purpose eClinicalWorks Submission
--- OUTSIDE RECORDS SUMMARY | 2018-02-08 06:08 | XMS REPORT ---
Author Author Rufina Azar Organization [employer] Address Unknown Phone Unavailable Care Team Providers Care Health Program Specialist Name Role Phone Rufina Azar CP Unavailable Allergies, Adverse Reactions, Alerts Substance Reaction Event Type Penicillin hives/purple Drug Allergy Encounters Encounter Location Date Humira - approved [facility] Nov 25, 2015 Follow up 4 Month [facility] Mar 24, 2016 [facility] November 06, 2015 Follow Up Lab & MRI Results Rheumatology Clinic November 20, 2015 Right Wrist MRI [facility] November 22, 2015 Problems Problem Type Condition ICD-9 Code Onset Dates Condition Status Assessment Rheumatoid arthritis of multiple sites without organ or system involvement with positive rheumatoid factor M05.79 Active Assessment High risk medication use Z79.899 Active Problem Rheumatoid arthritis of multiple sites without organ or system involvement with positive rheumatoid factor M05.79 Active Assessment Fibromyalgia M79.7 Active Assessment Hair loss L65.9 Active Assessment Counseling NOS Z71.9 Active Assessment Pain, joint, multiple sites M25.50 Active Medications Medication Code System Code Instructions Start Date End Date Status Dosage Metoprolol Succinate ER [facility] [address]-04 25 MG Orally Once a day Active 1 tablet Meloxicam [facility] [address]-47 7.5 MG Orally Active 1 tablet Meclizine HCl [facility] [address]-57 25 MG Orally Once a day Active 1 tablet as needed Lisinopril-Hydrochlorothiazide [facility] [address]-76 20-25 MG Orally Once a day Active 1 tablet Humira Pen [facility] [address]-78 40 MG/0.8ML Subcutaneous once weekly Active 0.8 ml Gabapentin [facility] [address]-77 300 MG Orally Three times a day Inactive 1 capsule Ranitidine HCl [facility] [address]-72 300 MG Orally Once a day Active 1 capsule at bedtime Flonase [facility] [address]-70 50 MCG/ACT Nasally Once a day Active 1 spray in each nostril Pravastatin Sodium [facility] [address]-55 20 MG Orally Once a day Active 1 tablet Methotrexate [facility] [address]-46 2.5 MG Orally Once weekly Active 4 tabs Folic Acid [facility] [address]-72 1 mg Orally Once a day Active 2 tabs Fluoxetine HCl [facility] [address]-23 40 MG Orally Once a day Active 1 capsule in the morning Social History Social History Element Qualifiers Date Reported Smoking status: . Are you a: Never Smoker Mar 24, 2016 Vital Signs Date/Time: Mar 24, 2016 Height 62 in Blood Pressure Diastolic 80 mm Hg Blood Pressure Systolic 165 mm Hg Weight 241.8 lbs Summary Purpose eClinicalWorks Submission
--- OUTSIDE RECORDS SUMMARY | 2018-02-08 06:08 | XMS REPORT ---
Author Author Rufina Azar Organization e[employer] Address Unknown Phone Unavailable Care Team Providers Care Supervisor Food Checkers And Cashiers Name Role Phone Rufina Azar CP Unavailable Allergies No Known Allergies Problems Problem Type Condition Code Onset Dates Condition Status Problem Rheumatoid arthritis of multiple sites without organ or system involvement with positive rheumatoid factor M05.79 Active Medications No Known Medications Results No Known Results Summary Purpose eClinicalWorks Submission
--- OUTSIDE RECORDS SUMMARY | 2018-02-08 06:08 | XMS REPORT ---
Author Author Rufina Azar Organization e[employer] Address Unknown Phone Unavailable Care Team Providers Care Drying Tumbler Operator Name Role Phone Rufina Azar CP Unavailable Encounters Encounter Location Date Humira - approved [facility] Nov 25, 2015 [facility] November 06, 2015 Follow Up Lab & MRI Results [facility]umatology Clinic November 20, 2015 Right Wrist MRI [facility] November 22, 2015 Problems Problem Type Condition ICD-9 Code Onset Dates Condition Status Problem Rheumatoid arthritis of multiple sites without organ or system involvement with positive rheumatoid factor M05.79 Active Social History Social History Element Qualifiers Date Reported Smoking status: . Are you a: Never Smoker November 20, 2015 Summary Purpose eClinicalWorks Submission
--- OUTSIDE RECORDS SUMMARY | 2018-02-08 06:08 | XMS REPORT ---
Author Author Rufina Azar Organization [employer] Address Unknown Phone Unavailable Care Team Providers Care Control Clerk Repairs Name Role Phone Rufina Azar CP Unavailable Allergies, Adverse Reactions, Alerts Substance Reaction Event Type Penicillin hives/purple Drug Allergy Problems Problem Type Condition Code Onset Dates Condition Status Assessment Rheumatoid [...] Date End Date Status Dosage Ranitidine HCl [facility] [address]-10 300 MG Orally Once a day Active 1 capsule at bedtime Humira Pen [facility] [address]-87 40 MG/0.8ML Subcutaneous every 2 weeks August 24, 2016 Inactive 0.8 ml Lisinopril-Hydrochlorothiazide [facility] [address]-83 20-25 MG Orally Once a day Active 1 tablet Meloxicam [facility] [address]-70 7.5 MG x 4 weeks Once a day prn with food Active 1 tablet Fluoxetine HCl [facility] [address]-19 40 MG Orally Once a day Active 1 capsule in the morning Enbrel SureClick [facility] [address]-53 50 MG/ML Subcutaneous Once a week August 24, 2016 Active 1 ml Folic Acid [facility] [address]-87 1 mg Orally Once a day Active 2 tabs Pravastatin Sodium [facility] [address]-92 20 MG Orally Once a day Active 1 tablet Flonase [facility] [address]-67 50 MCG/ACT Nasally Once a day Active 1 spray in each nostril Methotrexate [facility] [address]-46 2.5 MG Orally Once weekly Active 6 tabs Gabapentin [facility] [address]-95 100 MG Orally bedtime Active 2 capsule Metoprolol Succinate ER [facility] [address]-65 25 MG Orally Once a day Active 1 tablet Meclizine HCl [facility] [address]-70 25 MG Orally Once a day Active 1 tablet as needed Vital Signs Date/Time: August 24, 2016 Height 62 in Blood Pressure Diastolic 68 mm Hg Blood Pressure Systolic 155 mm Hg Weight 243 lbs Results No Known Results Summary Purpose [employer] Submission
--- OUTSIDE RECORDS SUMMARY | 2018-02-08 06:08 | XMS REPORT ---
Author Author Rufina Azar Organization [employer] Address Unknown Phone Unavailable Care Team Providers Care Color Buffer Name Role Phone Rufina Azar CP Unavailable Encounters Encounter Location Date Humira - approved [facility] Nov 25, 2015 Follow up 4 Month [facility] Mar 24, 2016 humira rx [facility] May 29, 2016 [facility] November 06, 2015 Follow Up Lab & MRI Results [facility] November 20, 2015 Right Wrist MRI [facility] November 22, 2015 Problems Problem Type Condition ICD-9 Code Onset Dates Condition Status Assessment Rheumatoid arthritis of multiple sites without organ or system involvement with positive rheumatoid factor M05.79 Active Problem Rheumatoid arthritis of multiple sites without organ or system involvement with positive rheumatoid factor M05.79 Active Medications Medication Code System Code Instructions Start Date End Date Status Dosage Hum[facility] [address]-95 40 MG/0.8ML Subcutaneous once weekly Active 0.8 ml Social History Social History Element Qualifiers Date Reported Smoking status: . Are you a: Never Smoker Mar 24, 2016 Summary Purpose [employer] Submission
--- OUTSIDE RECORDS SUMMARY | 2018-02-08 06:08 | XMS REPORT ---
Author Author Rufina Azar Organization [employer] Address Unknown Phone Unavailable Care Team Providers Care Frog Farmer Name Role Phone Rufina Azar CP Unavailable [...] Instructions Start Date End Date Status Dosage Gabapentin [facility] [address]-18 300 MG Orally Three times a day Inactive 1 capsule Fluoxetine HCl [facility] [address]-28 40 MG Orally Once a day Active 1 capsule in the morning Folic Acid [facility] [address]-38 1 mg Orally Once a day Active 2 tabs Methotrexate [facility] [address]-71 2.5 MG Orally Once weekly Active 6 tabs Meloxicam [facility] [address]-01 7.5 MG x 4 weeks Once a day prn with food November 17, 2016 Active 1 tablet Meclizine HCl [facility] [address]-41 25 MG Orally Once a day Active 1 tablet as needed Ranitidine HCl [facility] [address]-15 300 MG Orally Once a day Active 1 capsule at bedtime Pravastatin Sodium [facility] [address]-75 20 MG Orally Once a day Active 1 tablet Flonase [facility] [address]-25 50 MCG/ACT Nasally Once a day Active 1 spray in each nostril Lisinopril-Hydrochlorothiazide [facility] [address]-41 20-25 MG Orally Once a day Active 1 tablet Humira Pen [facility] [address]-61 40 MG/0.8ML Subcutaneous every 2 weeks Jan 16, 2017 Active 0.8 ml Metoprolol Succinate ER [facility] [address]-01 25 MG Orally Once a day Active 1 tablet Vital Signs Date/Time: July 20, 2016 Height 62 in Blood Pressure Diastolic 80 mm Hg Blood Pressure Systolic 145 mm Hg Weight 244.8 lbs Results No Known Results Summary Purpose [employer] Submission
--- OUTSIDE RECORDS SUMMARY | 2018-02-08 06:08 | XMS REPORT ---
Author Author Rufina Azar Organization [employer] Address Unknown Phone Unavailable Care Team Providers Care Nuclear Technologist Name Role Phone Rufina Azar CP Unavailable Allergies, Adverse Reactions, Alerts Substance Reaction Event Type Penicillin hives/purple Drug Allergy Encounters Encounter Location Date [facility] November 06, 2015 Follow Up Lab & MRI Results [facility] November 20, 2015 Problems Problem Type Condition ICD-9 Code [...] Start Date End Date Status Dosage Flonase [facility] [address]-28 50 MCG/ACT Nasally Once a day Active 1 spray in each nostril Pravastatin Sodium [facility] [address]-23 20 MG Orally Once a day Active 1 tablet Meloxicam [facility] [address]-68 7.5 MG Orally Active 1 tablet Methotrexate [facility] [address]-31 2.5 mg Orally Once weekly Active 6 tabs Ranitidine HCl [facility] [address]-80 300 MG Orally Once a day Active 1 capsule at bedtime Metoprolol Succinate ER [facility] [address]-39 25 MG Orally Once a day Active 1 tablet Lisinopril-Hydrochlorothiazide [facility] [address]-28 20-25 MG Orally Once a day Active 1 tablet Humira Pen [facility] [address]-85 40 MG/0.8ML Subcutaneous once weekly May 18, 2016 Active 0.8 ml Gabapentin [facility] [address]-10 300 MG Orally Three times a day Active 1 capsule Folic Acid [facility] [address]-89 1 mg Orally Once a day May 18, 2016 Active 2 tabs Fluoxetine HCl [facility] [address]-49 40 MG Orally Once a day Active 1 capsule in the morning Meclizine HCl [facility] [address]-85 25 MG Orally Once a day Active 1 tablet as needed Social History Social History Element Qualifiers Date Reported Smoking status: . Are you a: Never Smoker November 20, 2015 Vital Signs Date/Time: November 20, 2015 Height 62 in Blood Pressure Diastolic 87 mm Hg Blood Pressure Systolic 154 mm Hg Weight 240.2 lbs Summary Purpose [employer] Submission
--- OUTSIDE RECORDS SUMMARY | 2018-02-08 06:08 | XMS REPORT ---
Author Author Rufina Azar Organization [employer] Address Unknown Phone Unavailable Care Team Providers Care Director Of Business Continuity Name Role Phone Rufina Azar CP Unavailable Encounters Encounter Location Date [facility] November 06, 2015 Follow Up Lab & MRI Results [facility] November 20, 2015 Right Wrist MRI [facility] November 22, 2015 Problems Problem Type Condition ICD-9 Code Onset Dates Condition Status Assessment Pain in right wrist M25.531 Active Assessment Stiffness of right wrist joint M25.631 Active Problem Rheumatoid arthritis of multiple sites without organ or system involvement with positive rheumatoid factor M05.79 Active Social History Social History Element Qualifiers Date Reported Smoking status: . Are you a: Never Smoker November 20, 2015 Vital Signs Date/Time: November 22, 2015 Height 62 in Blood Pressure Diastolic 87 mm Hg Blood Pressure Systolic 173 mm Hg Weight 240 lbs Summary Purpose [employer] Submission
--- OUTSIDE RECORDS SUMMARY | 2018-02-08 06:15 | XMS REPORT ---
Author Author [facility] Address Unknown Phone Unavailable Care Team Providers Care Tornado Chaser Name Role Phone MICHAEL ALMANZA Unavailable Unavailable Problems This patient has no known problems. Allergies, Adverse Reactions, Alerts This patient has no known allergies or adverse reactions. Medications This patient has no known medications. Results Test Description Test Time Test Comments Text Results Atomic Results Result Comments KNEE LEFT 1-2 VIEWS 2018-01-17 10:31:00 [place] [id number] Patient Name: JM ROY MR #: [id number] : 1955 Age/Sex: 62/F Req #: [id number] [facility] Physician: MICHAEL ALMANZA MD Ordered by: MICHAEL ALMANZA MD Report #: [id number] Location: PACU V Room[facility] Procedure: [id number] DX/KNEE LEFT 1-2 VIEWS Exam Date: 01/17/18 Exam Time: 0950 REPORT STATUS: Signed PROCEDURE: X-RAY LEFT KNEE, ONE OR TWO VIEWS COMPARISON: None. INDICATIONS: POST LEFT KNEE SURGERY FINDINGS: See conclusion. CONCLUSION: Status post total left knee replacement with surrounding soft tissue swelling, air and marylin consistent with recent surgery. No periprosthetic displaced fractures. Dictated by: Michael Yadav M.D. on 01/17/2018 at 10:31 Electronically approved by: Michael Yadav M.D. on 01/17/2018 at 10:31 Dictated By: MICHAEL YADAV MD [id number] Transcribed By: JASSI on 01/17/18 1031 COPY TO: MICHAEL ALMANZA MD CHEST 2 VIEWS 2018-01-17 07:46:00 [place] [id number] Patient Name: JM ROY MR #: [id number] : 1955 Age/Sex: 62/F Req #: [id number] Adm Physician: Ordered by: MICHAEL ALMANZA MD Report #: [id number] Location: OR Room/Bed: Procedure: [id number] DX/CHEST 2 VIEWS Exam Date: 01/17/18 Exam Time: 719 REPORT STATUS: Signed PROCEDURE: X-RAY CHEST, TWO VIEWS COMPARISON: None. INDICATIONS: PRE OPERATIVE CHEST X-RAY FOR LEFT KNEE SURGERY FINDINGS: The lungs are well-inflated. No focal air space opacity, pleural effusion, or pneumothorax. There is hazy opacity along the right cardiac border in the pericardiophrenic recess. The mediastinal contour is otherwise within normal limits. No pulmonary edema. Multilevel degenerative disc changes of the thoracic spine. CONCLUSION: No acute cardiopulmonary abnormality. Opacity along the right pericardiophrenic recess likely reflects prominent epicardial fat, though the differential diagnosis includes pericardial cyst or less likely pericardial effusion. Prior chest radiographs, if available, would be useful for comparison purposes. In the absence of prior chest radiographs, a CT scan of the chest with contrast is suggested for further evaluation. Dictated by: Michael Yadav M.D. on 01/17/2018 at 7:46 Electronically approved by: Michael Yadav M.D. on 01/17/2018 at 7:46 Dictated By: MICHAEL YADAV MD 5 Transcribed By: JASSI on 01/17/18745 COPY TO: MICHAEL ALMANZA MD
--- NOTE | 2018-03-11 17:06 | Consultation ---
DATE OF CONSULTATION: January 18, 2018 REASON FOR CONSULTATION: Medical management. HISTORY OF PRESENT ILLNESS: This patient is a 62-year-old status post left knee arthroplasty. Doing well postoperatively with minimal pain. REVIEW OF SYSTEMS: Denies any fever, chills, shortness of breath headache, chest pain, nausea, vomiting, dizziness on PAST MEDICAL HISTORY: Significant for rheumatoid arthritis and hypertension. MEDICATIONS: See MAR. ALLERGIES: PENICILLIN. SOCIAL HISTORY: Nonsmoker and nondrinker. FAMILY HISTORY: Noncontributory. PHYSICAL EXAMINATION: VITALS: Temperature 97.0, pulse 52, blood pressure 120/55, sats 95%. GENERAL: No apparent distress. LUNGS: Clear to auscultation bilaterally. CARDIOVASCULAR: Regular rate and rhythm. ABDOMEN: Good bowel sounds. Soft and nontender. EXTREMITIES: No clubbing or cyanosis. NEUROLOGIC: Nonfocal. ASSESSMENT AND PLAN: 1. Anemia. Check a CBC. 2. Knee pain. Continue with physical therapy. 3. Rheumatoid arthritis. Continue with current care. 4. Hypertension. Continue with her home medication when she is discharged. Please see hospital chart for full details. Job#: [id number]
== END 2018-01-18 14:56 | disposition home health service (06) ==
LOC: OR 06:02 → PACU V 09:25 → MED/SURG 10:41
PROVIDERS: ADMIT Specialist; ATTEND Specialist
DX: M17.12 Unilateral primary osteoarthritis, left knee (principal); E66.01 Morbid (severe) obesity due to excess calories; Z68.41 Body mass index [BMI] 40.0-44.9, adult; Z88.0 Allergy status to penicillin; I10 Essential (primary) hypertension; M85.80 Other specified disorders of bone density and structure, unspecified site; K29.70 Gastritis, unspecified, without bleeding; F41.9 Anxiety disorder, unspecified; K21.9 Gastro-esophageal reflux disease without esophagitis; D64.9 Anemia, unspecified
CPT/HCPCS: 27447; 36415 ×2; 71046; 73560; 80048; 85014; 85018; 85025; 86850; 86900; 86920; 93005; 97110; 97116; 97139; 97161; 97530 ×2; C1713; G0378 ×2; G8978; G8979; J0171; J1100; J1170 ×2; J1885 ×2; J2001 ×2; J2250; J2405; J2795; J3370; J7030; J7050; S0164

== ENCOUNTER 2018-03-23 11:00 | Outpatient (RCR) | payer MEDICARE ==
[~2018-03-23 11:00] MED LIST changes: +ASPIRIN325 MG PO
== END 2018-03-25 ==
LOC: PT 11:00
PROVIDERS: ATTEND Specialist
DX: Z96.652 Presence of left artificial knee joint (principal); Z47.1 Aftercare following joint replacement surgery; M25.562 Pain in left knee; M25.662 Stiffness of left knee, not elsewhere classified; M62.81 Muscle weakness (generalized); R26.2 Difficulty in walking, not elsewhere classified
CPT/HCPCS: 97110 ×4; 97162; G8978; G8979

== ENCOUNTER 2018-04-01 08:00 | Outpatient (RCR) | payer MEDICARE | END 2018-04-25 | LOC: PT 08:00 | PROVIDERS: ATTEND Specialist | DX: Z96.652 Presence of left artificial knee joint (principal); Z47.1 Aftercare following joint replacement surgery; M25.562 Pain in left knee; M25.662 Stiffness of left knee, not elsewhere classified; M62.81 Muscle weakness (generalized); R26.2 Difficulty in walking, not elsewhere classified ==

== ENCOUNTER 2018-05-18 11:00 | Outpatient (RCR) | payer MEDICARE | END 2018-05-26 | LOC: PT 11:00 | PROVIDERS: ATTEND Specialist | DX: Z96.652 Presence of left artificial knee joint (principal); Z47.1 Aftercare following joint replacement surgery; M25.562 Pain in left knee; M25.662 Stiffness of left knee, not elsewhere classified; M62.81 Muscle weakness (generalized); R26.2 Difficulty in walking, not elsewhere classified | CPT/HCPCS: 97110 ×6; G8978; G8979 ==

== ENCOUNTER 2021-01-27 08:21 | Inpatient (IN) | payer MEDICARE ==
[2021-01-24 09:26] LABS: BASOPHILS % 0.6 % (0.0-1.0); EOSINOPHILS # (AUTO) 0.2 (0.0-0.4); EOSINOPHILS % 3.2 % (0.0-6.0); HEMATOCRIT 43.7 % (34.2-44.1); HEMOGLOBIN 13.8 g/dL (12.0-16.0); LYMPHOCYTES # (AUTO) 2.5 (1.0-3.2); LYMPHOCYTES % 34.5 % (18.0-39.1); MEAN CORPUSCULAR HEMOGLOBIN 28.9 pg (28-32); MEAN CORPUSCULAR HGB CONC 31.6 g/dL (31-35); MEAN CORPUSCULAR VOLUME 91.6 fL (81-99); MONOCYTES # (AUTO) 0.8 (0.2-0.8); MONOCYTES % 11.2 % (4.4-11.3); NEUTROPHILS # (AUTO) 3.6 (2.1-6.9); NEUTROPHILS % 50.2 % (38.7-80.0); PLATELET COUNT 266 x10e3/uL (140-360); RED BLOOD COUNT 4.77 x10e6/uL (3.6-5.1); RED CELL DISTRIBUTION WIDTH 15.9 % (11.7-14.4)
[2021-01-24 09:54] LABS: ANION GAP 13.6 mmol/L (8-16); CALCIUM 9.1 mg/dL (8.4-10.2); CREATININE, SERUM 0.61 mg/dL (0.57-1.11); POTASSIUM 3.6 mmol/L (3.5-5.1)
[~2021-01-27] VITALS: Ht 157.5 cm; Wt 103.4 kg
[~2021-01-27 08:21] MED LIST changes: +ASPIRIN81 MG PO; +ETODOLAC400 MG PO; +HYDROXYZINE HCL10 MG PO; +LISINOPRIL-HCT1 EACH PO; +METOPROLOL SUCC50 MG PO; +MOBIC7.5 MG PO; +NAMENDA5 MG PO; +ORENCIA125 MG/1 M INJ; +PREDNISONE5 MG PO; +SPORANOX100 MG PO; +VITAMIN D350 MCG PO
[2021-01-27] MEDS ORDERED: LEVOFLOXACIN 500MG/D5W 100ML 100 ML IV ONE (09:01)
[2021-01-27] MEDS ORDERED: BUPIVACAINE 0.25% 30ML SDV ONE (10:58)
[2021-01-27] MEDS ORDERED: FENTANYL CITRATE/PF 100MCG/2 ML INJ ONE (14:14)
[2021-01-27] MEDS ORDERED: SCOPOLAMINE 1.5 MG PATCH TOP ONE (15:30)
[2021-01-27] MEDS ORDERED: ONDANSETRON HCL INJ 2MG/ML 2ML 2 MG/ML VIAL IV PRN (15:30)
[2021-01-27] MEDS ORDERED: MORPHINE SULFATE INJ 2 MG/ML SYR IV PRN (15:30)
[2021-01-27] MEDS: SODIUM CHLORIDE 0.9% 1000ML 1,000 ML IV SCH ×2 (15:53→23:30)
[2021-01-27 16:04] VITALS: BP 174/71
[2021-01-27 19:10] VITALS: BP 190/79
[2021-01-27] MEDS: ENOXAPARIN SOD INJ 40 MG/0.4 ML SYR SC SCH (20:08)
[2021-01-27 20:57] VITALS: BP 190/79
[2021-01-27] MEDS: HYDROCODONE/APAP 7.5MG-325MG 1 EA TAB PO PRN (21:18)
[2021-01-28 00:29] VITALS: BP 174/73
[2021-01-28 05:09] VITALS: BP 178/65
[2021-01-28] MEDS: SODIUM CHLORIDE 0.9% 1000ML 1,000 ML IV SCH (05:41)
[2021-01-28 06:26] LABS: BASOPHILS % 0.2 % (0.0-1.0); HEMATOCRIT 39.5 % (34.2-44.1); HEMOGLOBIN 12.8 g/dL (12.0-16.0); LYMPHOCYTES # (AUTO) 1.8 (1.0-3.2); LYMPHOCYTES % 14.2 % (18.0-39.1); MEAN CORPUSCULAR HEMOGLOBIN 29.5 pg (28-32); MEAN CORPUSCULAR HGB CONC 32.4 g/dL (31-35); MONOCYTES # (AUTO) 1.5 (0.2-0.8); MONOCYTES % 11.7 % (4.4-11.3); NEUTROPHILS # (AUTO) 9.3 (2.1-6.9); NEUTROPHILS % 73.6 % (38.7-80.0); PLATELET COUNT 244 x10e3/uL (140-360); RED BLOOD COUNT 4.34 x10e6/uL (3.6-5.1); RED CELL DISTRIBUTION WIDTH 15.7 % (11.7-14.4)
[2021-01-28] MEDS ORDERED: HYDROCODONE/APAP 7.5MG-325MG 1 EA TAB PO PRN (07:00)
[2021-01-28 07:10] LABS: ALBUMIN/GLOBULIN RATIO 0.8 (0.8-2.0); ANION GAP 12.5 mmol/L (8-16); CALCIUM 8.2 mg/dL (8.4-10.2); CREATININE, SERUM 0.51 mg/dL (0.57-1.11); POTASSIUM 3.5 mmol/L (3.5-5.1)
[2021-01-28 07:27] LABS: MAGNESIUM 1.6 MG/DL (1.3-2.1)
[2021-01-28 07:53] VITALS: BP 151/81
[2021-01-28 08:17] VITALS: BP 151/81
[2021-01-28] MEDS: HYDROCODONE/APAP 7.5MG-325MG 1 EA TAB PO PRN (08:35)
[2021-01-28] MEDS ORDERED: POTASSIUM CHLORIDE 10MEQ EA PO NR (09:45)
[2021-01-28] MEDS: ENOXAPARIN SOD INJ 40 MG/0.4 ML SYR SC SCH (10:23)
== END 2021-01-28 10:58 | disposition home or self-care (01) | DRG 621 ==
LOC: OR 08:21 → PACU V 13:51 → MED/SURG 14:45
PROVIDERS: ADMIT Internal Medicine; ATTEND Internal Medicine
PROC: 0DB64Z3 Excision of Stomach, Percutaneous Endoscopic Approach, Vertical (ICD-10-PCS; 2021-01-27)
PROC: 0DNW4ZZ Release Peritoneum, Percutaneous Endoscopic Approach (ICD-10-PCS; principal; 2021-01-27 10:30)
DX: E66.01 Morbid (severe) obesity due to excess calories (principal); Z68.41 Body mass index [BMI] 40.0-44.9, adult; I11.9 Hypertensive heart disease without heart failure; K66.0 Peritoneal adhesions (postprocedural) (postinfection); M06.9 Rheumatoid arthritis, unspecified; F32.A Depression, unspecified; E78.5 Hyperlipidemia, unspecified; Z20.822 Contact with and (suspected) exposure to COVID-19
CPT/HCPCS: 36415; 71046; 80048; 80053; 83735; 84100; 85025; 93005; J1650; J1956; J2270; J2405; J3010; J7030; U0002

== ENCOUNTER 2021-02-01 14:15 | Emergency (ER) | payer MEDICARE ==
[~2021-02-01] VITALS: Ht 157.5 cm; Wt 101.2 kg
== END 2021-02-01 15:25 | disposition home or self-care (01) ==
LOC: ER 14:25
DX: G89.18 Other acute postprocedural pain (principal); I10 Essential (primary) hypertension; K21.9 Gastro-esophageal reflux disease without esophagitis; Z98.84 Bariatric surgery status
CPT/HCPCS: 99282